=== PATIENT | female | born 1950 | race Caucasian/White ===

== ENCOUNTER 2016-10-04 12:34 | Emergency (ER) | payer MEDICARE, OTHER ==
--- NOTE | 2016-10-04 14:05 | XRAY ---
Indication: Pain following fall. Comparison: None 3 views of the right shoulder demonstrates mild AC degenerative arthropathy and a few tiny humeral head subcortical cysts. No other bony, articular, or soft tissue abnormalities.
--- NOTE | 2016-10-04 14:05 | XRAY ---
Indication: Pain following fall. Comparison: None 3 views of the right knee demonstrates minimal medial joint space narrowing, tiny patellar spurring, and posterior fabella. No other bony, articular, or soft tissue abnormalities.
--- NOTE | 2016-10-04 14:08 | XRAY ---
Indication: Pain following fall. Comparison: None 5 views of the cervical spine demonstrates normal alignment with moderate C6-C7 degenerative disc disease as evidenced by disc space narrowing and opposing endplate sclerosis/spurring with subsequent foraminal narrowing, right greater than left. Lesser C5-C6 degenerative disc disease. No fracture, subluxation, or prevertebral soft tissue swelling. Impression: C5-C7 degenerative disc disease as detailed. Nothing acute.
--- NOTE | 2016-10-04 14:18 | XRAY ---
Indication: Pain following fall. Comparison: May 28, 2014. 3 views of the left knee unchanged again demonstrating total knee arthroplasty with intact prosthesis and articulation. New/acute findings.
--- NOTE | 2016-10-04 14:30 | ERPHSYRPT ---
- History of Present Illness Time Seen by Provider: 10/04/16 12:47 Source: patient, family Exam Limitations: no limitations Patient Subjective Stated Complaint: pt states she was at [facility] in [place], [place] and slipped and fell. pt states her knees hit first and then arms. pt c/o pain to left upper arm and neck. Triage Nursing Assessment: pt pink, warm, dry. bruising noted to right knee. pt ambulated into ER without difficulty. pt alert and oriented x3. pt did not loose consciousness. Occurred: just prior to arrival Reason for Fall: lost balance Injuries/Pain Location: neck, upper extremity, lower extremity Loss of Consciousness: no loss of consciousness Quality: aching Severity of Pain-Max: moderate Severity of Pain-Current: moderate Modifying Factors: Improves With: movement Associated Symptoms (Fall): neck pain Allergies/Adverse Reactions: adhesive tape Allergy (Intermediate, Verified 10/04/16 12:56) Rash Penicillins Allergy (Intermediate, Verified 10/04/16 12:56) Itching Sulfa (Sulfonamide Antibiotics) Allergy (Intermediate, Verified 10/04/16 12:56) Itching tramadol HCl [From Ultram] Allergy (Intermediate, Verified 10/04/16 12:56) Itching codeine Adverse Reaction (Severe, Verified 10/04/16 12:56) mood swings Home Medications: Alprazolam 0.25 mg [xanAX 0.25 MG] 12.5 tab PO TID 09/16/12 [History] PANTOPRAZOLE 40 mg Tablet [Protonix 40MG Tablet] 1 tab PO BID 11/04/14 [ History] Docusate Sodium [Stool Softener] 100 mg PO DAILY PRN PRN 12/13/14 [History] Losartan/Hydrochlorothiazide [Losartan-Hctz 100-12.5 mg Tab] 1 each PO DAILY [History] Hx Tetanus, Diphtheria Vaccination/Date Given: Yes (up to date) Hx Influenza Vaccination/Date Given: No Hx Pneumococcal Vaccination/Date Given: No Immunizations Up to Date: Yes - Review of Systems Constitutional: No Symptoms Eyes: No Symptoms Ears, Nose, & Throat: No Symptoms Respiratory: No Symptoms Cardiac: No Symptoms Abdominal/Gastrointestinal: No Symptoms Musculoskeletal: Neck Pain, Fall, Joint Pain Neurological: No Symptoms Psychological: No Symptoms Endocrine: No Symptoms Hematologic/Lymphatic: No Symptoms Immunological/Allergic: No Symptoms - Past Medical History Pertinent Past Medical History: Yes Neurological History: Migraines ENT History: Macular Degeneration Cardiac History: High Cholesterol, Hypertension, Other Respiratory History: Asthma Endocrine Medical History: No Pertinent History Musculoskeletal History: Arthritis, Fractures GI Medical History: GERD History: No Pertinent History Psycho-Social History: Anxiety Female Reproductive Disorders: Abnormal Uterine Bleeding Other Medical History: leaking heart valves (2), benign spots on both sides of lungs. left foot fracture 2014 - Past Surgical History Past Surgical History: Yes Neuro Surgical History: No Pertinent History Cardiac: Cardiac Catheterization Respiratory: Other Gastrointestinal: Cholecystectomy Genitourinary: No Pertinent History Musculoskeletal: Joint Replacement Female Surgical History: Hysterectomy, Tubal Ligation Other Surgical History: left knee replaced. lung biopsy right and left, 12 years ago. varicose vein stripping - Social History Smoking Status: Never smoker Exposure to second hand smoke: No Drug Use: none Patient Lives Alone: No - Nursing Vital Signs Nursing Vital Signs: Initial Vital Signs Temperature 98.1 F 10/04/16 12:47 Pulse Rate 75 10/04/16 12:47 Respiratory Rate 18 10/04/16 12:47 Blood Pressure 159/96 10/04/16 12:47 O2 Sat by Pulse Oximetry 98 10/04/16 12:47 Pain Scale Pain Intensity 3 - [place] Coma Score Best Eye Response ([place]): (4) open spontaneously Best Verbal Response ([place]): (5) oriented Best Motor Response ([place]): (6) obeys commands Cathleen Total: 15 - Physical Exam General Appearance: mild distress Head Injury: no evidence of injury Eye Exam: PERRL/EOMI, eyes nml inspection ENT Exam: airway nml Neck Exam: supple, trachea midline, full range of motion, normal alignment, normal inspection, limited range of motion, tenderness (paracervical on the right) Respiratory/Chest Exam: normal breath sounds, No chest tenderness Cardiovascular Exam: normal heart sounds, regular rate/rhythm, normal peripheral pulses Gastrointestinal Exam: soft, normal bowel sounds, No tenderness Back Exam: normal inspection, normal range of motion, No CVA tenderness Extremity Exam: normal range of motion, capillary refill <3 sec, pelvis stable, bony point tenderness, evidence of injury (contusions right knee), pain with movement Neurologic Exam: alert, oriented x 3, cooperative Skin Exam: warm, dry, ecchymosis (right knee) SpO2 Interpretation: normal SpO2: 98 Oxygen Delivery: Room Air - Course Nursing assessment & vital signs reviewed: Yes - Radiology Exams C-Spine X-ray Interpretation: Interpreted by me, Reviewed by me, Teleradiologist Report , Other (C5-7DDD. No acute.) Knee X-ray Interpretation: Interpreted by me, Reviewed by me, Teleradiologist Report , Other (Left knee post total arthroplasty with intact prosthesis/articulation. No acute. Right knee patella spurring, posterior fabella and joint space narrowing. No acute. ) Shoulder X-ray Interpretation: Interpreted by me, Reviewed by me, Teleradiologist Report (right shoulder with AC degenrative arthropathy and few tiny cysts. No other abn acutely.) Ordered Tests: Active Orders 24 hr Category Date Time Status CERVICAL SPINE MINIMUM 4 VIEWS Stat Exams 10/04/16 Completed KNEE (3 VIEWS) Stat Exams 10/04/16 Completed KNEE (3 VIEWS) Stat Exams 10/04/16 Completed SHOULDER Stat Exams 10/04/16 Completed - Progress Progress: improved Discussed with : Other (PCP 1 week) Will see patient in: office Counseled pt/family regarding: diagnosis, need for follow-up, rad results - Departure Time of Disposition: 14:25 Departure Disposition: Home Clinical Impression: Knee contusion Qualifiers: Encounter type: initial encounter Laterality: right Qualified Code(s): S80.01XA - Contusion of right knee, initial encounter Shoulder contusion Qualifiers: Encounter type: initial encounter Laterality: right Qualified Code(s): S40.011A - Contusion of right shoulder, initial encounter Condition: Stable Critical Care Time: No Referrals: BEATA RODNEY [Primary Care Provider] - Instructions: Contusion
[2016-10-04] MEDS ORDERED: TYLENOL EXTRA STRENGTH 500 MG PO ONE (14:35)
[2016-10-04] MEDS ORDERED: TYLENOL EXTRA STRENGTH 500 MG ONE (14:37)
[2016-10-04 14:43] VITALS: BP 158/94; PULSE 72; O2SAT 100
== END 2016-10-04 14:42 | disposition home or self-care (01) ==
LOC: ED 12:34
DX: S80.01XA Contusion of right knee, initial encounter (principal); S40.011A Contusion of right shoulder, initial encounter; W01.0XXA Fall on same level from slipping, tripping and stumbling without subsequent striking against object, initial encounter; Y92.511 Restaurant or cafe as the place of occurrence of the external cause; M25.562 Pain in left knee; M25.561 Pain in right knee; M79.622 Pain in left upper arm; M54.2 Cervicalgia
CPT/HCPCS: 72050; 73030; 73562; 99282; A9270-GY

== ENCOUNTER 2018-08-25 14:50 | Emergency (ER) | payer MEDICARE, OTHER ==
[2018-08-25 15:04] VITALS: O2SAT 97
--- NOTE | 2018-08-25 15:36 | XRAY ---
Indication: Pain following fall. Comparison: None 3 views of the right knee demonstrates tiny lateral tibial spine ossification with small effusion concerning for anterior cruciate ligament tear better evaluated with MRI. Elsewhere osteopenia, mild tricompartmental degenerative changes, and diffuse venous varicosities.
--- NOTE | 2018-08-25 15:38 | XRAY ---
Indication: Lateral pain following fall. Comparison: None 3 nonweightbearing views of the left foot demonstrates nondisplaced 5th metatarsal base fracture. Elsewhere mild osteopenia and small plantar heel spur.
--- NOTE | 2018-08-25 15:50 | ERPHSYRPT ---
- History of Present Illness Time Seen by Provider: 08/25/18 15:15 Source: patient Exam Limitations: clinical condition Patient Subjective Stated Complaint: Left foot injury Triage Nursing Assessment: Patient ambulated with a limp back to ED and transferred self to bed. Patient A+ O x 3. Patient complains of left foot injury after stepping off of a curb. Swelling and bruising noted to outer left foot. Pain is constant aching 6/10. Pulse present. Physician History: PATIENT STEPPED OFF EDGE OF CURB SUSTAINING INJURY TO LEFT FOOT. PATIENT COMPLAINS OF PAIN WITH SWELLING OVER OUTER ASPECT OF FOOT . HAS SEVERE PAIN UPON WEIGHT BEARING. DENIES DEFORMITY OR BRUSING. Method of Injury: fell, twisted Occurred: just prior to arrival Quality: constant Severity of Pain-Max: moderate Severity of Pain-Current: moderate Lower Extremities Pain: foot: left Modifying Factors: Improves With: movement Associated Symptoms: unable to bear weight Allergies/Adverse Reactions: adhesive tape Allergy (Intermediate, Verified 08/25/18 14:55) Rash Penicillins Allergy (Intermediate, Verified 08/25/18 14:55) Itching Sulfa (Sulfonamide Antibiotics) Allergy (Intermediate, Verified 08/25/18 14:55) Itching tramadol HCl [From Ultram] Allergy (Intermediate, Verified 08/25/18 14:55) Itching codeine Adverse Reaction (Severe, Verified 08/25/18 14:55) mood swings Home Medications: Alprazolam 0.25 mg [xanAX 0.25 MG] 0.25 tab PO HS 09/16/12 [History] Docusate Sodium [Stool Softener] 100 mg PO DAILY PRN PRN 12/13/14 [History] Hx Tetanus, Diphtheria Vaccination/Date Given: Yes (up to date) Hx Influenza Vaccination/Date Given: Yes Hx Pneumococcal Vaccination/Date Given: Yes Immunizations Up to Date: Yes - Review of Systems Constitutional: No Symptoms Musculoskeletal: Injury, Joint Pain, Joint Swelling Neurological: No Symptoms Psychological: No Symptoms Endocrine: No Symptoms - Past Medical History Pertinent Past Medical History: Yes Neurological History: Migraines ENT History: Macular Degeneration Cardiac History: High Cholesterol, Hypertension, Other Respiratory History: Asthma Endocrine Medical History: No Pertinent History Musculoskeletal History: Arthritis, Fractures GI Medical History: GERD History: No Pertinent History Psycho-Social History: Anxiety Female Reproductive Disorders: Abnormal Uterine Bleeding Other Medical History: leaking heart valves (2), benign spots on both sides of lungs. left foot fracture 2014 - Past Surgical History Past Surgical History: Yes Neuro Surgical History: No Pertinent History Cardiac: Cardiac Catheterization Respiratory: Other Gastrointestinal: Cholecystectomy Genitourinary: No Pertinent History Musculoskeletal: Joint Replacement Female Surgical History: Hysterectomy, Tubal Ligation Other Surgical History: left knee replaced. lung biopsy right and left, 12 years ago. varicose vein stripping - Social History Smoking Status: Never smoker Exposure to second hand smoke: No Drug Use: none Patient Lives Alone: No - Female History Hx Last Menstrual Period: Hysterectomy 1976 Hx Now: No - Nursing Vital Signs Nursing Vital Signs: Initial Vital Signs Temperature 98.0 F 08/25/18 14:59 Pulse Rate 70 08/25/18 14:59 Respiratory Rate 18 08/25/18 14:59 Blood Pressure 153/79 08/25/18 14:59 O2 Sat by Pulse Oximetry 97 08/25/18 14:59 Pain Scale Pain Intensity 6 - Physical Exam General Appearance: no apparent distress Foot Exam: left foot: limited range of motion, soft tissue tenderness, swelling (OVER THE LEFT PROXIMAL 5TH METATARSAL NO CREPITUS OR ECCHYMOSIS, PEDIS PULSE 2+ ) DTR - Lower Extremities Exam: knee (R): 2+, knee (L): 2+, ankle (R): 2+, ankle ( L): 2+ Neuro/Tendon Exam: normal sensation Mental Status Exam: alert, oriented x 3 Skin Exam: normal color SpO2: 97 - Radiology Exams Right Knee X-ray Interpretation: Reviewed by me, No Fracture (TINY LATERAL TIBIAL SPINE OSSIFICATION WITH SMALL EFFUSION CONCERNING FOR ANTERIOR CRUCIATE LIGAMENT TEAR) Ordered Tests: Active Orders 24 hr Category Date Time Status Crutches STAT Care 08/25/18 15:59 Active Splint STAT Care 08/25/18 15:57 Active FOOT (MINIMUM 3 VIEWS) Stat Exams 08/25/18 15:08 Completed KNEE (3 VIEWS) Stat Exams 08/25/18 15:11 Completed Medication Summary Discontinued Medications Generic Name Dose Route Start Last Admin Trade Name Freq PRN Reason Stop Dose Admin Hydrocodone Bitart/Acetaminophen 1 tab 08/25/18 16:08 08/25/18 16:20 [place] 5/325 Mg PO 08/25/18 16:09 1 tab STAT ONE Administration Hydrocodone Bitart/Acetaminophen Confirm 08/25/18 16:10 [place] 5/325 Mg Administered 08/25/18 16:11 Dose 1 tab .ROUTE .STK-MED ONE Hydrocodone Bitart/Acetaminophen Confirm 08/25/18 16:20 [place] 5/325 Mg Administered 08/25/18 16:21 Dose 1 tab .ROUTE .STK-MED ONE Diphtheria/Tetanus/Acell Pertussis 0.5 ml 08/25/18 16:07 08/25/18 16:21 Adacel Vial IM 08/25/18 16:08 0.5 ml .ONCE ONE Administration Diphtheria/Tetanus/Acell Pertussis Confirm 08/25/18 16:11 Adacel Vial Administered 08/25/18 16:12 Dose 0.5 ml IM .STK-MED ONE Diphtheria/Tetanus/Acell Pertussis Confirm 08/25/18 16:21 Adacel Vial Administered 08/25/18 16:22 Dose 0.5 ml IM .STK-MED ONE - Progress Progress: pain not gone completely Progress Note: 08/25/18 16:07 LEFT SHORT LEG ORTHOGLASS SPLINT, CRUTCHES, ADACEL 0.5ML IM Counseled pt/family regarding: diagnosis, need for follow-up, rad results - Departure Departure Disposition: Home Clinical Impression: LEFT 5TH METATARSAL FRACTURE FRACTURE Condition: Stable Critical Care Time: No Referrals: MAY PEREZ DIRECTOR OF NEUROLOGY [Primary Care Provider] - Additional Instructions: AMBULATE USING CRUTCHES NONWEIGHT BEARING LEFT FOOT UNTIL EVALUATED BY ORTHOPEDIC SURGEON. ELEVATE FOOT AND APPLY ICE OVER FOOT SWELLING EVERY 4 HOURS , 30 MINUTES FOR 48 HOURS. [place] 5/325 EVERY 6 HOURS FOR PAIN NEEDED. TAKE COPY OF XRAY DISC TO APPOINTMENT. Prescriptions: Hydrocodone/APAP 5-325 Tab^^^ [[place] 5-325 Tablet^^^] 1 tab PO Q6HPRN PRN #15 tablet MDD 4 PRN Reason: Pain
[2018-08-25 16:07] VITALS: BP 151/78; PULSE 67
[2018-08-25] MEDS ORDERED: Adacel Vial IM ONE ×3 (16:07→16:21)
[2018-08-25] MEDS ORDERED: NORCO 5/325 MG PO ONE (16:08)
[2018-08-25] MEDS ORDERED: NORCO 5/325 MG ONE ×2 (16:10→16:20)
== END 2018-08-25 16:51 | disposition home or self-care (01) ==
LOC: ED 14:50
DX: S92.355A Nondisplaced fracture of fifth metatarsal bone, left foot, initial encounter for closed fracture (principal); X50.1XXA Overexertion from prolonged static or awkward postures, initial encounter; Y93.89 Activity, other specified; Y92.89 Other specified places as the place of occurrence of the external cause; M79.89 Other specified soft tissue disorders; I10 Essential (primary) hypertension; J45.909 Unspecified asthma, uncomplicated
CPT/HCPCS: 29515; 73562; 73630; 90471; 90715; 99284; A9270-GY

== ENCOUNTER 2019-01-01 06:23 | Day surgery (SDC) | payer MEDICARE, OTHER ==
[2019-01-01] MEDS ORDERED: Lactated Ringers 1,000 ML IV SCH (07:30)
[2019-01-01] MEDS ORDERED: DIPRIVAN 200 MG/20 ML IV ONE ×2 (07:43→07:59)
[2019-01-01] MEDS ORDERED: Ketamine HCl 50 MG/ML ONE (07:43)
[2019-01-01] MEDS ORDERED: Mylicon DROPS ONE (08:13)
[2019-01-01 08:34] VITALS: O2SAT 97
[2019-01-01 08:58] VITALS: BP 153/86; PULSE 80
--- NOTE | 2019-01-01 11:59 | OP ---
SURGERY DATE/TIME: 01/01/2019 0745 PREOPERATIVE DIAGNOSIS: History of colon polyps and change in bowel habits with alternating constipation and diarrhea. POSTOPERATIVE DIAGNOSIS: Normal exam. PROCEDURE: Colonoscopy. SURGEON: Dr. Garcia. ANESTHESIA: MAC. Medications given by anesthesia department. HISTORY: The patient is a 68 year-old white female presenting now for surveillance examination due to history of previous polyps but also with a change in her bowel habits. The patient was felt the need to have endoscopic evaluation. She was appraised of the risks of the procedure including the risk of perforation, phlebitis, untoward reaction to medication, bleeding and missed lesions. The patient verbalized her understanding and desired to have the procedure performed. DESCRIPTION OF PROCEDURE: The patient was given the medications by the anesthesia department. She had continuous pulse oximetry, ECG monitoring, intermittent blood pressure monitoring and tidal CO2 monitoring during the examination. She was placed in the left lateral decubitus position. A digital rectal examination was performed and revealed somewhat tight anal sphincter tone. No masses were felt. The flexible Olympus pediatric colonoscope was used to intubate the rectum. A view of the colon was developed sequentially to the cecum. Upon insertion and withdrawal, including a retroflex view in the rectum, no mucosal lesions were encountered. The scope was removed from the patient who tolerated the procedure well and was sent back to OP recovery in good condition. The prep was noted to be fair to good.
== END 2019-01-01 09:05 | disposition home or self-care (01) ==
LOC: SDC 06:23
PROVIDERS: ATTEND Family Medicine
DX: Z86.010 Personal history of colon polyps (principal); R19.4 Change in bowel habit; K59.00 Constipation, unspecified; R19.7 Diarrhea, unspecified
CPT/HCPCS: J2704; A9270-GY

== ENCOUNTER 2019-08-17 13:19 | Emergency (ER) | payer MEDICARE, OTHER ==
[2019-08-17] MEDS ORDERED: BABY ASPIRIN 81 MG CHEW PO ONE (13:58)
[2019-08-17] MEDS ORDERED: BABY ASPIRIN 81 MG CHEW ONE (14:05)
--- NOTE | 2019-08-17 14:07 | ERPHSYRPT ---
- History of Present Illness Time Seen by Provider: 08/17/19 13:35 Historian: patient, family Exam Limitations: no limitations Patient Subjective Stated Complaint: pt here for chest pain last night 2 episodes, no pain at present time.pt denies any other cos at present time, Triage Nursing Assessment: pt alert, walked in, resp easy, skin w/d/p. chest clear, adb soft, no edema, moves ext well Physician History: This is a 69-year-old female who has a remote history of hypertension but has not been taking any blood pressure medicine in over 2 years and presents with 2 episodes of chest pain that began yesterday. She describes this as sharp substernal central and nonradiating. She arrives with no chest pain. Patient is obese. She has not taken any aspirin or nitroglycerin prior to her arrival. Patient contacted her primary care provider's office and they told her to come to the emergency room for evaluation. Patient is under a lot of stress according to her and her spouse. She has no shortness of breath and no cough. She has had no fever, no abdominal pain and no nausea vomiting or diarrhea. She does have a history of chronic angina and was prescribed nitroglycerin but has not taken anything for this. Her pedigree researcher is Dr. Avina Timing/Duration: yesterday Activities at Onset: sleep Quality: sharpness Location: substernal, central Chest Pain Radiation: no radiation Severity of Pain-Max: mild Severity of Pain-Current: none Associated Symptoms: denies symptoms Prior Chest Pain/Cardiac Workup: cardiac cath Nitro Today/Relief: no nitro taken today Aspirin Treatment Today: no aspirin today Allergies/Adverse Reactions: adhesive tape Allergy (Intermediate, Verified 08/17/19 13:30) Rash Penicillins Allergy (Intermediate, Verified 08/17/19 13:30) Itching Sulfa (Sulfonamide Antibiotics) Allergy (Intermediate, Verified 08/17/19 13:30) Itching tramadol HCl [From Ultra] Allergy (Intermediate, Verified 08/17/19 13:30) Itching codeine Adverse Reaction (Severe, Verified 08/17/19 13:30) mood swings Home Medications: Alprazolam 0.25 mg [xanAX 0.25 MG] 0.25 tab PO HS 09/16/12 [History] Docusate Sodium [Stool Softener] 100 mg PO DAILY PRN PRN 12/13/14 [History] Acetaminophen [Tylenol] 325 mg PO DAILY PRN PRN 12/29/18 [History] Calcium Carbonate/Vitamin D3 [Calcium 1,000 + D3 Caplet] 1 each PO DAILY 12/29/18 [History] Calcium No.1/D3/B6/FA/B12/Aloe [Vitamin D3-Aloe 1,000 Unit Tab] 1 each PO DAILY 12/29/18 [History] Fluticasone Propionate [Flonase Allergy Relief] 15.8 ml NS DAILY 12/29/18 [History] Naproxen Sodium 220 mg [Aleve 220 MG] 220 mg PO DAILY PRN PRN 12/29/18 [History] Ubidecarenone/Vit E Acetate [Co Q-10 100 mg Softgel] 1 each PO DAILY 12/29/18 [History] Hx Tetanus, Diphtheria Vaccination/Date Given: Yes (up to date) Hx Influenza Vaccination/Date Given: No Hx Pneumococcal Vaccination/Date Given: No Immunizations Up to Date: Yes Travel Risk - International Travel Have you traveled outside of the country in past 3 weeks: No - Coronavirus Screening Are you exhibiting any of the following symptoms?: No Close contact with a COVID-19 positive Pt in past 14-21 Days: No - Review of Systems Constitutional: No Symptoms Eyes: No Symptoms Ears, Nose, & Throat: No Symptoms Respiratory: No Symptoms Cardiac: Chest Pain Abdominal/Gastrointestinal: No Symptoms Genitourinary Symptoms: No Symptoms Musculoskeletal: No Symptoms Skin: No Symptoms Neurological: No Symptoms Psychological: No Symptoms Endocrine: No Symptoms Hematologic/Lymphatic: No Symptoms Immunological/Allergic: No Symptoms All Other Systems: Reviewed and Negative - Past Medical History Pertinent Past Medical History: Yes Neurological History: Migraines ENT History: Macular Degeneration Cardiac History: High Cholesterol, Hypertension, Other Respiratory History: Asthma Endocrine Medical History: No Pertinent History Musculoskeletal History: Arthritis, Fractures GI Medical History: GERD History: No Pertinent History Psycho-Social History: Anxiety Female Reproductive Disorders: Abnormal Uterine Bleeding Other Medical History: leaking heart valves (2), benign spots on both sides of lungs. left foot fracture 2014 - Past Surgical History Past Surgical History: Yes Neuro Surgical History: No Pertinent History Cardiac: Cardiac Catheterization Respiratory: Other Gastrointestinal: Cholecystectomy Genitourinary: No Pertinent History Musculoskeletal: Joint Replacement Female Surgical History: Hysterectomy, Tubal Ligation Other Surgical History: left knee replaced, meniscus surgery R knee. lung biopsy right and left, 12 years ago, mediastinoscopy for bx. (-). varicose vein stripping - Social History Smoking Status: Never smoker Exposure to second hand smoke: Yes (in past) Drug Use: none Patient Lives Alone: No - Female History Hx Last Menstrual Period: post Hx Now: No - Nursing Vital Signs Nursing Vital Signs: Initial Vital Signs Temperature 98.4 F 08/17/19 13:20 Pulse Rate 98 H 08/17/19 13:20 Respiratory Rate 16 08/17/19 13:20 Blood Pressure 165/113 08/17/19 13:20 O2 Sat by Pulse Oximetry 96 08/17/19 13:20 Pain Scale Pain Intensity 0 - Physical Exam General Appearance: no apparent distress, alert, anxiety, obese Eye Exam: PERRL/EOMI, eyes nml inspection Ears, Nose, Throat Exam: normal ENT inspection, moist mucous membranes Neck Exam: normal inspection, non-tender, supple, full range of motion Respiratory Exam: normal breath sounds, lungs clear, airway intact, No chest tenderness, No respiratory distress Cardiovascular Exam: regular rate/rhythm, normal heart sounds, normal peripheral pulses Gastrointestinal/Abdomen Exam: soft, normal bowel sounds, No tenderness, No guarding Pelvic Exam: not done Rectal Exam: not done Back Exam: normal inspection, normal range of motion, No CVA tenderness, No vertebral tenderness Extremity Exam: normal inspection, normal range of motion, pelvis stable Neurologic Exam: alert, oriented x 3, cooperative, 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 This delay appears to be given the impression of ST elevation but it is not true ST elevation. There is no evidence of acute ischemic changes on thi) Ordered Tests: Active Orders 24 hr Category Date Time Status Assistant Account Executive STAT Care 08/17/19 13:32 Active EKG-ER Only STAT Care 08/17/19 13:32 Active IV Insertion STAT Care 08/17/19 13:32 Active Pulse Oximetry (ED) STAT Care 08/17/19 13:32 Active CHEST 1 VIEW (PORTABLE) Stat Exams 08/17/19 13:59 Completed CBC W DIFF Stat Lab 08/17/19 14:10 Completed CMP Stat Lab 08/17/19 14:10 Completed D-DIMER QUANTITATIVE Stat Lab 08/17/19 14:10 Completed NT PRO BNP Stat Lab 08/17/19 14:10 Completed PROTIME WITH INR Stat Lab 08/17/19 14:10 Completed TROPONIN Q3H Lab 08/17/19 14:10 Completed TROPONIN Q3H Lab 08/17/19 17:00 Ordered TROPONIN Q3H Lab 08/17/19 20:00 Ordered TROPONIN Q3H Lab 08/17/19 23:00 Ordered TROPONIN Q3H Lab 08/18/19 02:00 Ordered Medication Summary Discontinued Medications Generic Name Dose Route Start Last Admin Trade Name Mikeq PRN Reason Stop Dose Admin Aspirin 324 mg 08/17/19 13:58 08/17/19 14:07 Baby Aspirin 81 Mg Chew PO 08/17/19 13:59 324 mg STAT ONE Administration Aspirin Confirm 08/17/19 14:05 Baby Aspirin 81 Mg Chew Administered 08/17/19 14:06 Dose 324 mg .ROUTE .STK-MED ONE Lab/Rad Data: Laboratory Result Diagrams 08/17/19 14:10 08/17/19 14:10 Laboratory Results 08/17/19 08/17/19 08/17/19 Range/Units 14:10 14:10 14:10 WBC (4.0-10.5) K/mm3 RBC (4.1-5.4) M/mm3 Hgb (12.0-16.0) gm/dl Hct (35-47) % MCV (78-100) fl MCH (26-32) pg MCHC (32-36) g/dl RDW (11.5-14.0) % Plt Count (150-450) K/mm3 MPV (7.5-11.0) fl Gran % (36.0-66.0) % Eos # (Auto) (0-0.5) Absolute Lymphs (auto) (1.0-4.6) Absolute Monos (auto) (0.0-1.3) Lymphocytes % (24.0-44.0) % Monocytes % (0.0-12.0) % Eosinophils % (0.00-5.0) % Basophils % (0.0-0.4) % Absolute Granulocytes (1.4-6.9) Basophils # (0-0.4) PT 12.1 (9.95-12.35) SECONDS INR 1.07 (0.8-3.0) D-Dimer 483 (215-500) ng/mL Sodium 140 (137-145) mmol/L Potassium 3.7 (3.5-5.1) mmol/L Chloride 106 (98-107) mmol/L Carbon Dioxide 28 (22-30) mmol/L Anion Gap 9.7 (5-15) MEQ/L BUN 17 (7-17) mg/dL Creatinine 0.98 (0.52-1.04) mg/dL Estimated GFR 60.0 ML/MIN Glucose 104 (74-106) mg/dL Calcium 9.1 (8.4-10.2) mg/dL Total Bilirubin 0.60 (0.2-1.3) mg/dL AST 15 (14-36) U/L ALT 10 (0-35) U/L Alkaline Phosphatase 88 (38-126) U/L Troponin I < 0.012 (0.000-0.034) ng/mL NT-Pro-B Natriuret Pep 161 (0-900) pg/mL Serum Total Protein 7.2 (6.3-8.2) g/dL Albumin 4.2 (3.5-5.0) g/dL 08/17/19 Range/Units 14:10 WBC 5.5 (4.0-10.5) K/mm3 RBC 5.02 (4.1-5.4) M/mm3 Hgb 15.0 (12.0-16.0) gm/dl Hct 44.6 (35-47) % MCV 88.8 (78-100) fl MCH 29.9 (26-32) pg MCHC 33.6 (32-36) g/dl RDW 12.9 (11.5-14.0) % Plt Count 288 (150-450) K/mm3 MPV 10.4 (7.5-11.0) fl Gran % 57.3 (36.0-66.0) % Eos # (Auto) 0.10 (0-0.5) Absolute Lymphs (auto) 1.83 (1.0-4.6) Absolute Monos (auto) 0.39 (0.0-1.3) Lymphocytes % 33.3 (24.0-44.0) % Monocytes % 7.1 (0.0-12.0) % Eosinophils % 1.8 (0.00-5.0) % Basophils % 0.5 (0.0-0.4) % Absolute Granulocytes 3.15 (1.4-6.9) Basophils # 0.03 (0-0.4) PT (9.95-12.35) SECONDS INR (0.8-3.0) D-Dimer (215-500) ng/mL Sodium (137-145) mmol/L Potassium (3.5-5.1) mmol/L Chloride (98-107) mmol/L Carbon Dioxide (22-30) mmol/L Anion Gap (5-15) MEQ/L BUN (7-17) mg/dL Creatinine (0.52-1.04) mg/dL Estimated GFR ML/MIN Glucose (74-106) mg/dL Calcium (8.4-10.2) mg/dL Total Bilirubin (0.2-1.3) mg/dL AST (14-36) U/L ALT (0-35) U/L Alkaline Phosphatase (38-126) U/L Troponin I (0.000-0.034) ng/mL NT-Pro-B Natriuret Pep (0-900) pg/mL Serum Total Protein (6.3-8.2) g/dL Albumin (3.5-5.0) g/dL - Progress Progress: improved Air Movement: good Progress Note: 08/17/19 14:34 Chest x-ray reveals no acute pulmonary process. 08/17/19 14:47 Medical decision making: This patient has no known history of coronary artery disease. She does have some valvular issues and had a history in the past of high blood pressure which she was seeing Dr. Avina for. She arrived with no chest pain today. She had 2 episodes yesterday. Her primary care provider's office told her to come to the emergency room for evaluation. Patient has not had any chest pain during her stay here. Her blood pressure, without any medical intervention, improved 256/92 at the time of her discharge. Patient's d-dimer, BNP and troponin levels are all within normal limits. We will discharge her to home with instructions to follow-up with Dr. Avina, her pedigree researcher. I also told her to keep a daily log of blood pressure at least twice a day and to present that to Dr. Avina for further management. Blood Culture(s) Obtained: No Antibiotics given: No Counseled pt/family regarding: lab results, diagnosis, need for follow-up, rad results - Departure Departure Disposition: Home Clinical Impression: Chest pain Condition: Stable Critical Care Time: No Referrals: MAY PEREZ NP [NON-STAFF PHY W/O PRIVILEGES] - Additional Instructions: Monitor your blood pressure and keep a log twice a day daily log of your blood pressure for the next 4 [address] Avina's office to arrange for follow-up appointment. Return to the emergency room if you have recurrent chest pain.
[2019-08-17 14:11] LABS: Absolute Neutrophil Ct (ANC) 3.15 (1.4-6.9); BASOPHIL % 0.5 % (0.0-0.4); Basophil (Absolute #) 0.03 (0-0.4); Eosinophil % 1.8 % (0.00-5.0); Hematocrit 44.6 % (35-47); Lymphocyte (Absolute #) 1.83 (1.0-4.6); Lymphocytes % 33.3 % (24.0-44.0); Mean Cell Volume 88.8 fl (78-100); Mean Corpuscular Hemoglobin 29.9 pg (26-32); Mean Corpuscular Hgb Concent. 33.6 g/dl (32-36); Mean Platelet Volume 10.4 fl (7.5-11.0); Monocyte (Absolute #) 0.39 (0.0-1.3); Monocytes % 7.1 % (0.0-12.0); Neutrophil % 57.3 % (36.0-66.0); Platelet Count 288 K/mm3 (150-450); Red Blood Count 5.02 M/mm3 (4.1-5.4); Red Cell Distribution Width 12.9 % (11.5-14.0); White Blood Count 5.5 K/mm3 (4.0-10.5)
[2019-08-17 14:12] VITALS: BP 175/97
[2019-08-17 14:18] LABS: INR 1.07 (0.8-3.0); PROTIME 12.1 SECONDS (9.95-12.35)
[2019-08-17 14:30] LABS: ALBUMIN 4.2 g/dL (3.5-5.0); ANION GAP 9.7 MEQ/L (5-15); BILIRUBIN,TOTAL 0.6 mg/dL (0.2-1.3); Calcium 9.1 mg/dL (8.4-10.2); Creatinine 1 0.98 mg/dL (0.52-1.04); Potassium 3.7 mmol/L (3.5-5.1); Total Protein 7.2 g/dL (6.3-8.2)
--- NOTE | 2019-08-17 14:30 | XRAY ---
Indication: Chest pain and cough. Comparison: February 18, 2016. Portable apical lordotic chest again demonstrates normal heart and lungs. Bony thorax intact again with mild osteopenia. No new/acute findings.
[2019-08-17 14:36] VITALS: O2SAT 98
[2019-08-17 14:42] VITALS: PULSE 70
== END 2019-08-17 15:03 | disposition home or self-care (01) ==
LOC: ED 13:19
DX: R07.9 Chest pain, unspecified (principal); I10 Essential (primary) hypertension; E66.9 Obesity, unspecified; Z79.899 Other long term (current) drug therapy
CPT/HCPCS: 36000; 36415; 71045; 80053; 83880; 84484; 85025; 85379; 85610; 93005; 93041; 94760; 99284; A9270-GY

== ENCOUNTER 2020-07-29 12:24 | Emergency (ER) | payer MEDICARE, OTHER ==
--- NOTE | 2020-07-29 13:12 | ERPHSYRPT ---
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 Patient states that she awoke this morning with a visual disturbance. Patient describes her experience as looking through a kaleidoscope. She had a slight headache rated 3 out of 10. Patient has a history of optical migraines. Patient symptoms this morning were similar. Patient checked her blood pressure and it was elevated more than normal. Patient states she has a history of hypertension. She was last on antihypertensives about 5 to 6 years ago. Patient has been off of blood pressure medications since. Patient was told that she no longer needed blood pressure medication. She otherwise feels well. No slurred speech. No numbness tingling or weakness. No facial droop. No arm weakness. Patient is ambulatory with a stable gait. Patient was brought to our ED by her sister. No associated chest pain or shortness of breath. No nausea vomiting or diaphoresis. No abdominal pain. No dizziness or lightheadedness. Patient voices no other concerns at this time. Timing/Duration: today Severity: mild Modifying Factors: Improves With: nothing Associated Symptoms: denies symptoms Allergies/Adverse Reactions: adhesive tape Allergy (Intermediate, Verified 07/29/20 12:41) Rash Penicillins Allergy (Intermediate, Verified 07/29/20 12:41) Itching Sulfa (Sulfonamide Antibiotics) Allergy (Intermediate, Verified 07/29/20 12:41) Itching tramadol HCl [From Ultram] Allergy (Intermediate, Verified 07/29/20 12:41) Itching codeine Adverse Reaction (Severe, Verified 07/29/20 12:41) mood swings Home Medications: ALPRAZolam 0.25 MG [xanAX 0.25 MG] 0.5 tab PO TID PRN 09/16/12 [History] Docusate Sodium [Stool Softener] 100 mg PO DAILY PRN PRN 12/13/14 [History] Calcium Carbonate/Vitamin D3 [Calcium 1,000 + D3 Caplet] 1 each PO DAILY 12/29/18 [History] Calcium No.1/D3/B6/FA/B12/Aloe [Vitamin D3-Aloe 1,000 Unit Tab] 1 each PO DAILY 12/29/18 [History] Fluticasone Propionate [Flonase Allergy Relief] 15.8 ml NS DAILY 12/29/18 [Hi story] Ubidecarenone/Vit E Acetate [Co Q-10 100 mg Softgel] 1 each PO DAILY 12/29/18 [History] PANTOPRAZOLE 40 mg Tablet [Protonix 40MG Tablet] 40 mg PO QAM 07/29/20 [History] Hx Tetanus, Diphtheria Vaccination/Date Given: Yes (up to date) Hx Influenza Vaccination/Date Given: No Hx Pneumococcal Vaccination/Date Given: No Travel Risk - International Travel Have you traveled outside of the country in past 3 weeks: No - Coronavirus Screening Are you exhibiting any of the following symptoms?: No Close contact with a COVID-19 positive Pt in past 14-21 Days: No - Vaccine Status Have you recieved a Covid-19 vaccination: No - Review of Systems Constitutional: No Symptoms, No Fever, No Chills Eyes: No Symptoms Ears, Nose, & Throat: No Symptoms Respiratory: No Symptoms, No Cough, No Dyspnea Cardiac: No Symptoms, No Chest Pain, No Edema, No Syncope Abdominal/Gastrointestinal: No Symptoms, No Abdominal Pain, No Nausea, No Vomiting, No Diarrhea Genitourinary Symptoms: No Symptoms, No Dysuria Musculoskeletal: No Symptoms, No Back Pain, No Neck Pain Skin: No Symptoms, No Rash Neurological: No Symptoms, No Dizziness, No Focal Weakness, No Sensory Changes Psychological: No Symptoms Endocrine: No Symptoms Hematologic/Lymphatic: No Symptoms Immunological/Allergic: No Symptoms All Other Systems: Reviewed and Negative - Past Medical History Pertinent Past Medical History: Yes Neurological History: Migraines ENT History: Macular Degeneration Cardiac History: High Cholesterol, Hypertension, Other Respiratory History: Asthma Endocrine Medical History: No Pertinent History Musculoskeletal History: Arthritis, Fractures GI Medical History: GERD History: No Pertinent History Psycho-Social History: Anxiety Female Reproductive Disorders: Abnormal Uterine Bleeding Other Medical History: leaking heart valves (2), benign spots on both sides of lungs. left foot fracture 2014 - Past Surgical History Past Surgical History: Yes Neuro Surgical History: No Pertinent History Cardiac: Cardiac Catheterization Respiratory: Other Gastrointestinal: Cholecystectomy Genitourinary: No Pertinent History Musculoskeletal: Joint Replacement Female Surgical History: Hysterectomy, Tubal Ligation Other Surgical History: left knee replaced, meniscus surgery R knee. lung biopsy right and left, 12 years ago, mediastinoscopy for bx. (-). varicose vein stripping - Social History Smoking Status: Never smoker Exposure to second hand smoke: No (in past) Drug Use: none Patient Lives Alone: No - Female History Hx Now: No - Nursing Vital Signs Nursing Vital Signs: Initial Vital Signs Temperature 97.7 F 07/29/20 12:32 Pulse Rate 63 07/29/20 12:32 Blood Pressure 191/95 07/29/20 12:32 O2 Sat by Pulse Oximetry 98 07/29/20 12:32 Pain Scale Pain Intensity 3 - Physical Exam General Appearance: no apparent distress, alert Eye Exam: PERRL/EOMI, eyes nml inspection Ears, Nose, Throat Exam: normal ENT inspection, TMs normal, pharynx normal, moist mucous membranes Neck Exam: normal inspection, non-tender, supple, full range of motion Respiratory Exam: normal breath sounds, lungs clear, airway intact, No respiratory distress Cardiovascular Exam: regular rate/rhythm, normal heart sounds, normal peripheral pulses, No murmur Gastrointestinal/Abdomen Exam: soft, normal bowel sounds, No tenderness, No mass Pelvic Exam: not done Back Exam: normal inspection, normal range of motion, No CVA tenderness, No vertebral tenderness Extremity Exam: normal inspection, normal range of motion, pelvis stable Neurologic Exam: alert, oriented x 3, cooperative, normal mood/affect, nml cerebellar function, nml station & gait, sensation nml, No motor deficits Skin Exam: normal color, warm, dry, No rash Lymphatic Exam: No adenopathy SpO2 Interpretation: normal SpO2: 97 O2 Delivery: Room Air - Course Nursing assessment & vital signs reviewed: Yes EKG Interpreted by Me: RATE (73), Sinus Rhythm, NORMAL AXIS, NORMAL INTERVALS - Radiology Exams Chest X-ray Interpretation: Teleradiologist Report (Normal heart and lungs with incidental right hemidiaphragm elevation. Bony thorax intact again with mild osteopenia. No new acute findings.) - CT Exams Head CT Interpretation: Tele-radiologist Report (Continued normal CT head without contrast exam. Normal appearing brain parenchyma ventricles and bony calvarium for patient's age. Visualized paranasal sinuses and mastoid air cells are clear.) Ordered Tests: Active Orders 24 hr Category Date Time Status Air Operations Manager STAT Care 07/29/20 12:52 Active EKG-ER Only STAT Care 07/29/20 12:50 Active IV Insertion STAT Care 07/29/20 12:50 Active Pulse Oximetry (ED) STAT Care 07/29/20 12:50 Active CHEST 1 VIEW (PORTABLE) Stat Exams 07/29/20 12:52 Completed HEAD WITHOUT CONTRAST [CT] Stat Exams 07/29/20 12:55 Completed CBC W DIFF Stat Lab 07/29/20 12:05 Completed CMP Stat Lab 07/29/20 12:05 Completed MAGNESIUM Stat Lab 07/29/20 12:05 Completed NT PRO BNP Stat Lab 07/29/20 12:05 Completed TROPONIN Q3H Lab 07/29/20 12:05 Completed TROPONIN Q3H Lab 07/29/20 15:24 Completed TROPONIN Q3H Lab 07/29/20 19:00 Ordered TROPONIN Q3H Lab 07/29/20 22:00 Ordered TROPONIN Q3H Lab 07/30/20 01:00 Ordered UA W/RFX UR CULTURE Stat Lab 07/29/20 12:57 Completed Urine Triage Profile Stat Lab 07/29/20 12:57 Completed Medication Summary Generic Name Dose Route Start Last Admin Trade Name Freq PRN Reason Stop Dose Admin Carvedilol 6.25 mg 07/30/20 10:00 07/29/20 15:19 Coreg 6.25 Mg PO 08/29/20 09:59 6.25 mg DAILY DANIEL Administration Discontinued Medications Generic Name Dose Route Start Last Admin Trade Name Freq PRN Reason Stop Dose Admin Acetaminophen Confirm 07/29/20 14:50 Tylenol Extra Strength 500 Mg Administered 07/29/20 14:51 Dose 1,000 mg .ROUTE .STK-MED ONE Acetaminophen 1,000 mg 07/29/20 14:54 07/29/20 14:55 Tylenol Extra Strength 500 Mg PO 07/29/20 14:55 1,000 mg STAT STA Administration Lab/Rad Data: Laboratory Result Diagrams 07/29/20 12:05 07/29/20 12:05 Laboratory Results 07/29/20 07/29/20 07/29/20 Range/Units 15:24 12:57 12:57 WBC (4.0-10.5) K/mm3 RBC (4.1-5.4) M/mm3 Hgb (12.0-16.0) gm/dl Hct (35-47) % MCV (78-100) fl MCH (26-32) pg MCHC (32-36) g/dl RDW (11.5-14.0) % Plt Count (150-450) K/mm3 MPV (7.5-11.0) fl Gran % (36.0-66.0) % Eos # (Auto) (0-0.5) Absolute Lymphs (auto) (1.0-4.6) Absolute Monos (auto) (0.0-1.3) Lymphocytes % (24.0-44.0) % Monocytes % (0.0-12.0) % Eosinophils % (0.00-5.0) % Basophils % (0.0-0.4) % Absolute Granulocytes (1.4-6.9) Basophils # (0-0.4) Sodium (137-145) mmol/L Potassium (3.5-5.1) mmol/L Chloride (98-107) mmol/L Carbon Dioxide (22-30) mmol/L Anion Gap (5-15) MEQ/L BUN (7-17) mg/dL Creatinine (0.52-1.04) mg/dL Estimated GFR ML/MIN Glucose (74-106) mg/dL Calcium (8.4-10.2) mg/dL Magnesium (1.6-2.3) mg/dL Total Bilirubin (0.2-1.3) mg/dL AST (14-36) U/L ALT (0-35) U/L Alkaline Phosphatase (38-126) U/L Troponin I < 0.012 (0.000-0.034) ng/mL NT-Pro-B Natriuret Pep (0-900) pg/mL Serum Total Protein (6.3-8.2) g/dL Albumin (3.5-5.0) g/dL Urine Color COLORLESS (YELLOW) Urine Appearance CLEAR (CLEAR) Urine pH 7.0 (5-6) Ur Specific [place] 1.002 (1.005-1.025) Urine Protein NEGATIVE (Negative) Urine Ketones NEGATIVE (NEGATIVE) Urine Blood NEGATIVE (0-5) Vikram/ul Urine Nitrite NEGATIVE (NEGATIVE) Urine Bilirubin NEGATIVE (NEGATIVE) Urine Urobilinogen NEGATIVE (0-1) mg/dL Ur Leukocyte Esterase NEGATIVE (NEGATIVE) Urine WBC (Auto) NONE (0-5) /HPF Urine RBC (Auto) NONE (0-2) /HPF U Epithel Cells (Auto) NONE (FEW) /HPF Urine Bacteria (Auto) NONE SEEN (NEGATIVE) /HPF Urine Culture Reflexed NO (NO) Urine Glucose NEGATIVE (NEGATIVE) mg/dL Urine Opiates Level NEGATIVE (NEGATIVE) Ur Methadone NEGATIVE (NEGATIVE) Urine Barbiturates NEGATIVE (NEGATIVE) Ur Phencyclidine (PCP) NEGATIVE (NEGATIVE) Urine Amphetamine NEGATIVE (NEGATIVE) U Benzodiazepine Level NEGATIVE (NEGATIVE) Urine Cocaine NEGATIVE (NEGATIVE) Urine Marijuana (THC) NEGATIVE (NEGATIVE) 07/29/20 07/29/20 07/29/20 Range/Units 12:05 12:05 12:05 WBC 4.4 (4.0-10.5) K/mm3 RBC 4.54 (4.1-5.4) M/mm3 Hgb 13.1 (12.0-16.0) gm/dl Hct 40.7 (35-47) % MCV 89.6 (78-100) fl MCH 28.9 (26-32) pg MCHC 32.2 (32-36) g/dl RDW 12.9 (11.5-14.0) % Plt Count 239 (150-450) K/mm3 MPV 10.4 (7.5-11.0) fl Gran % 52.8 (36.0-66.0) % Eos # (Auto) 0.13 (0-0.5) Absolute Lymphs (auto) 1.54 (1.0-4.6) Absolute Monos (auto) 0.39 (0.0-1.3) Lymphocytes % 34.8 (24.0-44.0) % Monocytes % 8.8 (0.0-12.0) % Eosinophils % 2.9 (0.00-5.0) % Basophils % 0.7 (0.0-0.4) % Absolute Granulocytes 2.33 (1.4-6.9) Basophils # 0.03 (0-0.4) Sodium 140 (137-145) mmol/L Potassium 4.0 (3.5-5.1) mmol/L Chloride 104 (98-107) mmol/L Carbon Dioxide 30 (22-30) mmol/L Anion Gap 10.0 (5-15) MEQ/L BUN 12 (7-17) mg/dL Creatinine 0.89 (0.52-1.04) mg/dL Estimated GFR > 60.0 ML/MIN Glucose 107 H (74-106) mg/dL Calcium 9.4 (8.4-10.2) mg/dL Magnesium 2.1 (1.6-2.3) mg/dL Total Bilirubin 0.30 (0.2-1.3) mg/dL AST 20 (14-36) U/L ALT 13 (0-35) U/L Alkaline Phosphatase 78 (38-126) U/L Troponin I < 0.012 (0.000-0.034) ng/mL NT-Pro-B Natriuret Pep 199 (0-900) pg/mL Serum Total Protein 6.6 (6.3-8.2) g/dL Albumin 3.9 (3.5-5.0) g/dL Urine Color (YELLOW) Urine Appearance (CLEAR) Urine pH (5-6) Ur Specific [place] (1.005-1.025) Urine Protein (Negative) Urine Ketones (NEGATIVE) Urine Blood (0-5) Vikram/ul Urine Nitrite (NEGATIVE) Urine Bilirubin (NEGATIVE) Urine Urobilinogen (0-1) mg/dL Ur Leukocyte Esterase (NEGATIVE) Urine WBC (Auto) (0-5) /HPF Urine RBC (Auto) (0-2) /HPF U Epithel Cells (Auto) (FEW) /HPF Urine Bacteria (Auto) (NEGATIVE) /HPF Urine Culture Reflexed (NO) Urine Glucose (NEGATIVE) mg/dL Urine Opiates Level (NEGATIVE) Ur Methadone (NEGATIVE) Urine Barbiturates (NEGATIVE) Ur Phencyclidine (PCP) (NEGATIVE) Urine Amphetamine (NEGATIVE) U Benzodiazepine Level (NEGATIVE) Urine Cocaine (NEGATIVE) Urine Marijuana (THC) (NEGATIVE) - Progress Progress: improved Progress Note: Patient reassessed. She is feeling well. Headache is minimal at this time. Patient given a gram of Tylenol for her headache. Case discussed with Dr. Garcia. He feels and I agree that patient may go home today provided her sec ond troponin is negative. Per Dr. Garcia we will start Coreg 6.25 mg p.o. twice daily. Patient will receive the first dose in our ED. A prescription for Coreg will be provided to patient. Patient will log her blood pressure twice a day at home. She will follow-up with Dr. Garcia/Jackie Sanchez this week. 07/29/20 15:15 07/29/20 16:[address] Garcia or Jackie Sanchez on Tuesday at 3:15 PM. Discussed with .: Veronica Will see patient in: office Counseled pt/family regarding: lab results, diagnosis, need for follow-up, rad results - Departure Departure Disposition: Home Clinical Impression: Hypertension, Migraine, Osteopenia Condition: Stable Critical Care Time: No Referrals: KENDELL SANCHEZ [Primary Care Provider] - Additional Instructions: Discharge/Care Plan BROOKS WALLACE was seen on 07/29/20 in the Emergency Room. The patient was counseled regarding Diagnosis,Lab results, Imaging studies, need for follow up and when to return to the Emergency Room. Prescriptions given: Discharge Note I have spoken with the patient and/or caregivers. I have explained the patient's condition, diagnosis and treatment plan based on the information available to me at this time. I have answered the patient's and/or caregiver's questions and addressed any concerns. The patient and/or caregivers have as good understanding of the patient's diagnosis, condition and treatment plan as can be expected at this point. The vital signs have been stable. The patient's condition is stable and appropriate for discharge from the emergency department. The patient will pursue further outpatient evaluation with the primary care physician or other designated or consulting physician as outlined in the discharge instructions. The patient and/or caregivers are agreeable to this plan of care and follow-up instructions have been explained in detail. The patient and/or caregivers have received these instruction. The patient/and or caregivers are aware that any significant change in condition or worsening of symptoms should prompt an immediate return to this or the closest emergency department or call 911. Prescriptions: Carvedilol 6.25 mg [Coreg 6.25 MG] 6.25 mg PO BID 7 Days #14 tablet
[2020-07-29 13:19] LABS: Appearance CLEAR (CLEAR); Bilirubin NEGATIVE (NEGATIVE); Blood NEGATIVE Ery/ul (0-5); Glucose NEGATIVE (NEGATIVE); Ketones NEGATIVE (NEGATIVE); Leukocyte Esterase NEGATIVE (NEGATIVE); Nitrite NEGATIVE (NEGATIVE); Protein,Urine Dip NEGATIVE (Negative); Specific Gravity 1.002 (1.005-1.025); Urobilinogen NEGATIVE mg/dL (0-1)
[2020-07-29 13:28] LABS: Absolute Neutrophil Ct (ANC) 2.33 (1.4-6.9); BASOPHIL % 0.7 % (0.0-0.4); Basophil (Absolute #) 0.03 (0-0.4); Eosinophil % 2.9 % (0.00-5.0); Eosinophil (Absolute #) 0.13 (0-0.5); Hematocrit 40.7 % (35-47); Hemoglobin 13.1 gm/dl (12.0-16.0); Lymphocyte (Absolute #) 1.54 (1.0-4.6); Lymphocytes % 34.8 % (24.0-44.0); Mean Cell Volume 89.6 fl (78-100); Mean Corpuscular Hemoglobin 28.9 pg (26-32); Mean Corpuscular Hgb Concent. 32.2 g/dl (32-36); Mean Platelet Volume 10.4 fl (7.5-11.0); Monocyte (Absolute #) 0.39 (0.0-1.3); Monocytes % 8.8 % (0.0-12.0); Neutrophil % 52.8 % (36.0-66.0); Platelet Count 239 K/mm3 (150-450); Red Blood Count 4.54 M/mm3 (4.1-5.4); Red Cell Distribution Width 12.9 % (11.5-14.0); White Blood Count 4.4 K/mm3 (4.0-10.5)
--- NOTE | 2020-07-29 13:30 | XRAY ---
Indication: High blood pressure. Pneumonia. Comparison: August 17, 2019. Portable chest again demonstrates normal heart and lungs with incidental right hemidiaphragm elevation. Bony thorax intact again with mild osteopenia. No new/acute findings.
[2020-07-29 13:34] LABS: ALBUMIN 3.9 g/dL (3.5-5.0); ALKALINE PHOSPHATASE 78 U/L (38-126); BLOOD UREA NITROGEN 12 mg/dL (7-17); CHLORIDE 104 mmol/L (98-107); Calcium 9.4 mg/dL (8.4-10.2); Carbon Dioxide 30 mmol/L (22-30); Creatinine 1 0.89 mg/dL (0.52-1.04); EST GLOMERULAR FILTRATION RATE > 60.0 ML/MIN; Glucose 107 mg/dL (74-106); MAGNESIUM 2.1 mg/dL (1.6-2.3); NT PRO BNP 199 pg/mL (0-900); SGOT/AST 20 U/L (14-36); SGPT/ALT 13 U/L (0-35); SODIUM 140 mmol/L (137-145); Total Protein 6.6 g/dL (6.3-8.2)
[2020-07-29 13:35] LABS: Amphetamine,Urine NEGATIVE (NEGATIVE); Barbiturate,Urine NEGATIVE (NEGATIVE); Benzodiazepine,Urine NEGATIVE (NEGATIVE); Cocaine,Urine NEGATIVE (NEGATIVE); Methadone,Urine NEGATIVE (NEGATIVE); Opiate,Urine NEGATIVE (NEGATIVE); PCP,Urine NEGATIVE (NEGATIVE); THC,Urine NEGATIVE (NEGATIVE)
[2020-07-29 13:36] LABS: Bacteria NONE SEEN /HPF (NEGATIVE)
--- NOTE | 2020-07-29 13:40 | XRAY ---
Indication: Nausea. High blood pressure. Multiple contiguous axial images obtained through the head without contrast. Comparison: January 11, 2011. Normal appearing brain parenchyma, ventricles, and bony calvarium for patient's age. Visualized paranasal sinuses and mastoid air cells are clear. Impression: Continued normal CT head without contrast exam.
[2020-07-29 14:02] VITALS: PULSE 73
[2020-07-29 14:06] VITALS: O2SAT 97
[2020-07-29] MEDS ORDERED: TYLENOL EXTRA STRENGTH 500 MG ONE (14:50)
[2020-07-29] MEDS ORDERED: TYLENOL EXTRA STRENGTH 500 MG PO STA (14:54)
[2020-07-29 15:13] VITALS: BP 172/76
[2020-07-30] MEDS ORDERED: Coreg 6.25 MG PO SCH (10:00)
== END 2020-07-29 16:45 | disposition home or self-care (01) ==
LOC: ED 12:24
DX: I10 Essential (primary) hypertension (principal); G43.909 Migraine, unspecified, not intractable, without status migrainosus; M85.80 Other specified disorders of bone density and structure, unspecified site
CPT/HCPCS: 36000; 36415; 70450; 71045; 80053; 80307; 81001; 83735; 83880; 84484; 85025; 93005; 93041; 94760; 99284; A9270-GY

== ENCOUNTER 2021-08-09 10:32 | Observation (INO) | payer MEDICARE, OTHER ==
[2021-08-09] MEDS ORDERED: Pepcid 20 MG VIAL IV ONE ×2 (10:40→11:03)
[2021-08-09] MEDS ORDERED: BABY ASPIRIN 81 MG CHEW PO ONE (10:40)
[2021-08-09] MEDS ORDERED: Nitrostat 0.4 MG (ED) SL ONE ×2 (10:40→11:03)
[2021-08-09] MEDS ORDERED: Sodium Chloride 0.9% 1000 ML 1,000 ML IV SCH (10:45)
--- NOTE | 2021-08-09 10:49 | ERPHSYRPT ---
- History of Present Illness Time Seen by Provider: 08/09/21 10:44 Historian: patient, family Exam Limitations: no limitations Patient Subjective Stated Complaint: PT TO ER WITH COMPLAINTS OF CHEST PAIN THAT STARTED 3 DAYS AGO. PT STATES PAIN COMES AND GOES, STARTES IN LEFT BREAST AND RADIATES TO LEFT ARM, SHOULDER AND BACK. DENIES SOB. PT TOOK 1 NITRO AT HOME WITH SOME RELIEF. Triage Nursing Assessment: PT AMBULATORY. SKIN PWD. A&OX4. Physician History: 71 [address] old pt of Dr. Avina at , now with Cp intermittent for 3 days left substernal and radiating to left arm and back. Improved after one NTG at home. No abd pain, mild SOBreath. No prior hx for Ht dx negative cath years ago. + family Hx and sees cardio for HPTN. CHest clear. Ht reg withpout murmur. Abd nontender without peritineal signs. Ext without edema. calves nontender and negative homans bilaterally. Timing/Duration: day(s) Activities at Onset: none Quality: fullness, pressure, sharpness Location: substernal, shoulder, back Chest Pain Radiation: arm, back Severity of Pain-Max: moderate Severity of Pain-Current: moderate Modifying Factors: Improves With: nitroglycerin Associated Symptoms: back pain Prior Chest Pain/Cardiac Workup: cardiac cath Nitro Today/Relief: 0.4 mg x 1, provided at home, mild relief Aspirin Treatment Today: 81 mg x 4, provided by ED Allergies/Adverse Reactions: adhesive tape Allergy (Intermediate, Verified 08/09/21 10:43) Rash Penicillins Allergy (Intermediate, Verified 08/09/21 10:43) Itching Sulfa (Sulfonamide Antibiotics) Allergy (Intermediate, Verified 08/09/21 10:43) Itching tramadol HCl [From Ultram] Allergy (Intermediate, Verified 08/09/21 10:43) Itching codeine Adverse Reaction (Severe, Verified 08/09/21 10:43) mood swings Home Medications: ALPRAZolam 0.25 MG [xanAX 0.25 MG] 0.5 tab PO TID PRN 09/16/12 [History] Docusate Sodium [Stool Softener] 100 mg PO DAILY PRN PRN 12/13/14 [History] Fluticasone Propionate [Flonase Allergy Relief] 15.8 ml NS DAILY 12/29/18 [History] PANTOPRAZOLE 40 mg Tablet [Protonix 40MG Tablet] 40 mg PO QAM 07/29/20 [History] Bioflav,Lemon/Vit Bcomp,C [Lipo-Flavonoid Plus Caplet] 1 tab PO DAILY 08/09/21 [History] L. Rhamnosus GG/Inulin [Culturelle Digest 10B Cell Cap] 1 cap PO DAILY 08/09/21 [History] Losartan/Hydrochlorothiazide [Losartan-Hctz 50-12.5 mg Tab] 1 tab PO DAILY 08/09/21 [History] Metoprolol Succinate 50 mg [Toprol Xl 50 MG] 1 tab PO DAILY 08/09/21 [History] Nitroglycerin 0.4 mg SL PRN 08/09/21 [History] Hx Tetanus, Diphtheria Vaccination/Date Given: Yes (up to date) Hx Influenza Vaccination/Date Given: No Hx Pneumococcal Vaccination/Date Given: No Travel Risk - International Travel Have you traveled outside of the country in past 3 weeks: No - Coronavirus Screening Are you exhibiting any of the following symptoms?: No Close contact with a COVID-19 positive Pt in past 14-21 Days: Yes - Vaccine Status Have you recieved a Covid-19 vaccination: No - Review of Systems Constitutional: No Fever, No Chills Eyes: No Symptoms Ears, Nose, & Throat: No Symptoms Respiratory: No Cough, No Dyspnea Cardiac: Chest Pain, No Edema, No Syncope Abdominal/Gastrointestinal: No Abdominal Pain, No Nausea, No Vomiting, No Diarrhea Genitourinary Symptoms: No Dysuria Musculoskeletal: Back Pain, No Neck Pain Skin: No Rash Neurological: No Dizziness, No Focal Weakness, No Sensory Changes Psychological: No Symptoms Endocrine: No Symptoms Hematologic/Lymphatic: No Symptoms Immunological/Allergic: No Symptoms All Other Systems: Reviewed and Negative - Past Medical History Pertinent Past Medical History: Yes Neurological History: Migraines ENT History: Macular Degeneration Cardiac History: High Cholesterol, Hypertension, Other Respiratory History: Asthma Endocrine Medical History: No Pertinent History Musculoskeletal History: Arthritis, Fractures GI Medical History: GERD History: No Pertinent History Psycho-Social History: Anxiety Female Reproductive Disorders: Abnormal Uterine Bleeding Other Medical History: leaking heart valves (2), benign spots on both sides of lungs. left foot fracture 2014 - Past Surgical History Past Surgical History: Yes Neuro Surgical History: No Pertinent History Cardiac: Cardiac Catheterization Respiratory: Other Gastrointestinal: Cholecystectomy Genitourinary: No Pertinent History Musculoskeletal: Joint Replacement Female Surgical History: Hysterectomy, Tubal Ligation Other Surgical History: left knee replaced, meniscus surgery R knee. lung biopsy right and left, 12 years ago, mediastinoscopy for bx. (-). varicose vein stripping - Social History Smoking Status: Never smoker Exposure to second hand smoke: No (in past) Drug Use: none Patient Lives Alone: No - Nursing Vital Signs Nursing Vital Signs: Initial Vital Signs Temperature 97.5 F 08/09/21 10:33 Pulse Rate 82 08/09/21 10:33 Respiratory Rate 16 08/09/21 10:33 Blood Pressure 177/84 08/09/21 10:33 O2 Sat by Pulse Oximetry 97 08/09/21 10:33 Pain Scale Pain Intensity 3 - Physical Exam General Appearance: no apparent distress, alert Eye Exam: PERRL/EOMI, eyes nml inspection Ears, Nose, Throat Exam: normal ENT inspection, moist mucous membranes Neck Exam: normal inspection, non-tender, supple, full range of motion Respiratory Exam: normal breath sounds, lungs clear, No respiratory distress Cardiovascular Exam: regular rate/rhythm, normal heart sounds, normal peripheral pulses Gastrointestinal/Abdomen Exam: soft, No tenderness, No mass Pelvic Exam: deferred Rectal Exam: deferred Back Exam: normal inspection, No CVA tenderness, No vertebral tenderness Extremity Exam: normal inspection, normal range of motion Neurologic Exam: alert, oriented x 3, cooperative, normal mood/affect, sensation nml, No motor deficits Skin Exam: normal color, warm, dry SpO2 Interpretation: normal SpO2: 97 O2 Delivery: Room Air - Course Nursing assessment & vital signs reviewed: Yes EKG Interpreted by Me: Sinus Rhythm, Left Bundle Branch Block, Non-specific ST Changes - Radiology Exams Chest X-ray Interpretation: Reviewed by me, Other (reticular interstitial pattern) - CT Exams Chest CT Interpretation: Tele-radiologist Report, No PE Ordered Tests: Active Orders 24 hr Category Date Time Status Psychology Fellow STAT Care 08/09/21 10:42 Active EKG-ER Only STAT Care 08/09/21 10:40 Active IV Insertion STAT Care 08/09/21 10:40 Active Pulse Oximetry (ED) STAT Care 08/09/21 10:40 Active CHEST 1 VIEW (PORTABLE) Stat Exams 08/09/21 10:41 Taken CHEST WITH CONTRAST [CT] Stat Exams 08/09/21 11:21 Taken AMYLASE Stat Lab 08/09/21 10:45 Completed CBC W DIFF Stat Lab 08/09/21 10:45 Completed CMP Stat Lab 08/09/21 10:45 Completed CULTURE,URINE Stat Lab 08/09/21 11:34 Received D-DIMER QUANTITATIVE Stat Lab 08/09/21 10:45 Completed LIPASE Stat Lab 08/09/21 10:45 Completed Lactic Acid Stat Lab 08/09/21 10:40 Completed NT PRO BNP Stat Lab 08/09/21 10:45 Completed TROPONIN Q3H Lab 08/09/21 10:45 Completed TROPONIN Q3H Lab 08/09/21 13:50 Completed TROPONIN Q3H Lab 08/09/21 16:45 Ordered TROPONIN Q3H Lab 08/09/21 19:45 Ordered TROPONIN Q3H Lab 08/09/21 22:45 Ordered UA W/RFX CULTURE Stat Lab 08/09/21 11:34 Completed Medication Summary Generic Name Dose Route Start Last Admin Trade Name Freq PRN Reason Stop Dose Admin Sodium Chloride 1,000 mls @ 50 mls/hr 08/09/21 10:45 08/09/21 11:03 Sodium Chloride 0.9% 1000 Ml IV 09/08/21 10:44 50 mls/hr .Q20H DANIEL Administration Discontinued Medications Generic Name Dose Route Start Last Admin Trade Name Freq PRN Reason Stop Dose Admin Aspirin 324 mg 08/09/21 10:40 08/09/21 11:04 Aspirin 81 Mg Tab.Chew PO 08/09/21 10:41 324 mg STAT ONE Administration Aspirin Confirm 08/09/21 11:03 Aspirin 81 Mg Tab.Chew Administered 08/09/21 11:04 Dose 324 mg .ROUTE .STK-MED ONE Famotidine 20 mg 08/09/21 10:40 08/09/21 11:04 Famotidine 20 Mg/1 Vial IV 08/09/21 10:41 20 mg STAT ONE Administration Famotidine Confirm 08/09/21 11:03 Famotidine 20 Mg/1 Vial Administered 08/09/21 11:04 Dose 20 mg IV .STK-MED ONE Nitroglycerin 0.4 mg 08/09/21 10:40 08/09/21 11:04 Nitroglycerin 0.4 Mg (Ed) 0.4 Mg Tab.Subl SL 08/09/21 10:41 0.4 mg STAT ONE Administration Nitroglycerin Confirm 08/09/21 11:03 Nitroglycerin 0.4 Mg (Ed) 0.4 Mg Tab.Subl Administered 08/09/21 11:04 Dose 0.4 mg SL .STK-MED ONE Lab/Rad Data: Laboratory Result Diagrams 08/09/21 10:45 08/09/21 10:45 Laboratory Results 08/09/21 08/09/21 08/09/21 Range/Units 13:50 11:34 10:45 WBC (4.0-10.5) x10^3/uL RBC (4.1-5.4) x10^6/uL Hgb (12.0-16.0) g/dL Hct (35-47) % MCV (78-100) fL MCH (26-32) pg MCHC (32-36) g/dL RDW (11.5-14.0) % Plt Count (150-450) x10^3/uL MPV (7.5-11.0) fL Gran % (36.0-66.0) % Immature Gran % (Auto) (0.00-0.4) % Nucleat RBC Rel Count (0.00-0.1) % Eos # (Auto) (0-0.5) x10^3/uL Immature Gran # (Auto) (0.00-0.03) x10^3u/L Absolute Lymphs (auto) (1.0-4.6) x10^3/uL Absolute Monos (auto) (0.0-1.3) x10^3/uL Absolute Nucleated RBC (0.00-0.01) x10^3u/L Lymphocytes % (24.0-44.0) % Monocytes % (0.0-12.0) % Eosinophils % (0.00-5.0) % Basophils % (0.0-0.4) % Absolute Granulocytes (1.4-6.9) x10^3/uL Basophils # (0-0.4) x10^3/uL D-Dimer (0.0-0.50) mg/L Sodium (137-145) mmol/L Potassium (3.5-5.1) mmol/L Chloride (98-107) mmol/L Carbon Dioxide (22-30) mmol/L Anion Gap (5-15) MEQ/L BUN (7-17) mg/dL Creatinine (0.52-1.04) mg/dL Estimated GFR ML/MIN Glucose (74-106) mg/dL Lactic Acid (0.4-2.0) Calcium (8.4-10.2) mg/dL Total Bilirubin (0.2-1.3) mg/dL AST (14-36) U/L ALT (0-35) U/L Alkaline Phosphatase (38-126) U/L Troponin I < 0.012 < 0.012 (0.000-0.034) ng/mL NT-Pro-B Natriuret Pep (0-900) pg/mL Serum Total Protein (6.3-8.2) g/dL Albumin (3.5-5.0) g/dL Amylase (30-110) U/L Lipase (23-300) U/L Urinalys Dipstick Clnc MAIN LAB Urine Color YELLOW (YELLOW) Urine Appearance CLEAR (CLEAR) Urine pH 5.0 (5-6) Ur Specific [place] 1.025 (1.005-1.025) POC Urine Protein Conf NEGATIVE (Negative) Urine Ketones NEGATIVE (NEGATIVE) Urine Nitrite NEGATIVE (NEGATIVE) Urine Bilirubin NEGATIVE (NEGATIVE) Urine Urobilinogen 0.2 (0-1) mg/dL Urine Leukocytes SMALL (NEGATIVE) Urine WBC (Auto) 6-10 (0-5) /HPF Urine RBC (Auto) 0-2 (0-2) /HPF U Epithel Cells (Auto) RARE (FEW) /HPF Urine Bacteria (Auto) RARE (NEGATIVE) /HPF Urine RBC SMALL (0-5) Vikram/ul Urine Mucus (Auto) SLIGHT (NEGATIVE) /HPF Ur Culture Indicated? YES Urine Glucose NEGATIVE (NEGATIVE) mg/dL 08/09/21 08/09/21 08/09/21 Range/Units 10:45 10:45 10:45 WBC 9.1 (4.0-10.5) x10^3/uL RBC 4.74 (4.1-5.4) x10^6/uL Hgb 14.0 (12.0-16.0) g/dL Hct 42.5 (35-47) % MCV 89.7 (78-100) fL MCH 29.5 (26-32) pg MCHC 32.9 (32-36) g/dL RDW 12.7 (11.5-14.0) % Plt Count 283 (150-450) x10^3/uL MPV 9.7 (7.5-11.0) fL Gran % 72.8 H (36.0-66.0) % Immature Gran % (Auto) 0.3 (0.00-0.4) % Nucleat RBC Rel Count 0.0 (0.00-0.1) % Eos # (Auto) 0.13 (0-0.5) x10^3/uL Immature Gran # (Auto) 0.03 (0.00-0.03) x10^3u/L Absolute Lymphs (auto) 1.66 (1.0-4.6) x10^3/uL Absolute Monos (auto) 0.59 (0.0-1.3) x10^3/uL Absolute Nucleated RBC 0.00 (0.00-0.01) x10^3u/L Lymphocytes % 18.3 L (24.0-44.0) % Monocytes % 6.5 (0.0-12.0) % Eosinophils % 1.4 (0.00-5.0) % Basophils % 0.7 (0.0-0.4) % Absolute Granulocytes 6.58 (1.4-6.9) x10^3/uL Basophils # 0.06 (0-0.4) x10^3/uL D-Dimer 0.63 H* (0.0-0.50) mg/L Sodium 141 (137-145) mmol/L Potassium 4.0 (3.5-5.1) mmol/L Chloride 104 (98-107) mmol/L Carbon Dioxide 28 (22-30) mmol/L Anion Gap 13.2 (5-15) MEQ/L BUN 23 H (7-17) mg/dL Creatinine 0.91 (0.52-1.04) mg/dL Estimated GFR > 60.0 ML/MIN Glucose 109 H (74-106) mg/dL Lactic Acid (0.4-2.0) Calcium 9.1 (8.4-10.2) mg/dL Total Bilirubin 0.60 (0.2-1.3) mg/dL AST 21 (14-36) U/L ALT 18 (0-35) U/L Alkaline Phosphatase 99 (38-126) U/L Troponin I (0.000-0.034) ng/mL NT-Pro-B Natriuret Pep 201 (0-900) pg/mL Serum Total Protein 7.4 (6.3-8.2) g/dL Albumin 4.1 (3.5-5.0) g/dL Amylase 77 (30-110) U/L Lipase 96 (23-300) U/L Urinalys Dipstick Clnc Urine Color (YELLOW) Urine Appearance (CLEAR) Urine pH (5-6) Ur Specific [place] (1.005-1.025) POC Urine Protein Conf (Negative) Urine Ketones (NEGATIVE) Urine Nitrite (NEGATIVE) Urine Bilirubin (NEGATIVE) Urine Urobilinogen (0-1) mg/dL Urine Leukocytes (NEGATIVE) Urine WBC (Auto) (0-5) /HPF Urine RBC (Auto) (0-2) /HPF U Epithel Cells (Auto) (FEW) /HPF Urine Bacteria (Auto) (NEGATIVE) /HPF Urine RBC (0-5) Vikram/ul Urine Mucus (Auto) (NEGATIVE) /HPF Ur Culture Indicated? Urine Glucose (NEGATIVE) mg/dL 08/09/21 Range/Units 10:40 WBC (4.0-10.5) x10^3/uL RBC (4.1-5.4) x10^6/uL Hgb (12.0-16.0) g/dL Hct (35-47) % MCV (78-100) fL MCH (26-32) pg MCHC (32-36) g/dL RDW (11.5-14.0) % Plt Count (150-450) x10^3/uL MPV (7.5-11.0) fL Gran % (36.0-66.0) % Immature Gran % (Auto) (0.00-0.4) % Nucleat RBC Rel Count (0.00-0.1) % Eos # (Auto) (0-0.5) x10^3/uL Immature Gran # (Auto) (0.00-0.03) x10^3u/L Absolute Lymphs (auto) (1.0-4.6) x10^3/uL Absolute Monos (auto) (0.0-1.3) x10^3/uL Absolute Nucleated RBC (0.00-0.01) x10^3u/L Lymphocytes % (24.0-44.0) % Monocytes % (0.0-12.0) % Eosinophils % (0.00-5.0) % Basophils % (0.0-0.4) % Absolute Granulocytes (1.4-6.9) x10^3/uL Basophils # (0-0.4) x10^3/uL D-Dimer (0.0-0.50) mg/L Sodium (137-145) mmol/L Potassium (3.5-5.1) mmol/L Chloride (98-107) mmol/L Carbon Dioxide (22-30) mmol/L Anion Gap (5-15) MEQ/L BUN (7-17) mg/dL Creatinine (0.52-1.04) mg/dL Estimated GFR ML/MIN Glucose (74-106) mg/dL Lactic Acid 1.6 (0.4-2.0) Calcium (8.4-10.2) mg/dL Total Bilirubin (0.2-1.3) mg/dL AST (14-36) U/L ALT (0-35) U/L Alkaline Phosphatase (38-126) U/L Troponin I (0.000-0.034) ng/mL NT-Pro-B Natriuret Pep (0-900) pg/mL Serum Total Protein (6.3-8.2) g/dL Albumin (3.5-5.0) g/dL Amylase (30-110) U/L Lipase (23-300) U/L Urinalys Dipstick Clnc Urine Color (YELLOW) Urine Appearance (CLEAR) Urine pH (5-6) Ur Specific [place] (1.005-1.025) POC Urine Protein Conf (Negative) Urine Ketones (NEGATIVE) Urine Nitrite (NEGATIVE) Urine Bilirubin (NEGATIVE) Urine Urobilinogen (0-1) mg/dL Urine Leukocytes (NEGATIVE) Urine WBC (Auto) (0-5) /HPF Urine RBC (Auto) (0-2) /HPF U Epithel Cells (Auto) (FEW) /HPF Urine Bacteria (Auto) (NEGATIVE) /HPF Urine RBC (0-5) Vikram/ul Urine Mucus (Auto) (NEGATIVE) /HPF Ur Culture Indicated? Urine Glucose (NEGATIVE) mg/dL - Progress Progress: improved, re-examined Air Movement: good Progress Note: 08/09/21 15:[address] Ulloa, pt and family and will place in hosp on observation and rule out ACS and all agree with this plan. Blood Culture(s) Obtained: No Antibiotics given: No Counseled pt/family regarding: lab results, diagnosis, need for follow-up, rad results - Departure Departure Disposition: Observation Clinical Impression: Chest pain Condition: Good Critical Care Time: No Referrals: BEENA ULLOA MD [Primary Care Provider] - Follow up/PCP as directed
[2021-08-09 10:54] LABS: Absolute Neutrophil Ct (ANC) 6.58 x10^3/uL (1.4-6.9); Basophil (Absolute #) 0.06 x10^3/uL (0-0.4); Eosinophil % 1.4 % (0.00-5.0); Eosinophil (Absolute #) 0.13 x10^3/uL (0-0.5); Hematocrit 42.5 % (35-47); Lymphocyte (Absolute #) 1.66 x10^3/uL (1.0-4.6); Lymphocytes % 18.3 % (24.0-44.0); Mean Cell Volume 89.7 fL (78-100); Mean Corpuscular Hemoglobin 29.5 pg (26-32); Mean Corpuscular Hgb Concent. 32.9 g/dL (32-36); Mean Platelet Volume 9.7 fL (7.5-11.0); Monocyte (Absolute #) 0.59 x10^3/uL (0.0-1.3); Monocytes % 6.5 % (0.0-12.0); Neutrophil % 72.8 % (36.0-66.0); Platelet Count 283 x10^3/uL (150-450); Red Blood Count 4.74 x10^6/uL (4.1-5.4); Red Cell Distribution Width 12.7 % (11.5-14.0); White Blood Count 9.1 x10^3/uL (4.0-10.5)
[2021-08-09] MEDS ORDERED: BABY ASPIRIN 81 MG CHEW ONE (11:03)
[2021-08-09] MEDS ORDERED: Sodium Chloride 0.9% 1000 ML 1,000 ML ONE (11:03)
[2021-08-09 11:15] LABS: ALBUMIN 4.1 g/dL (3.5-5.0); ALKALINE PHOSPHATASE 99 U/L (38-126); AMYLASE 77 U/L (30-110); ANION GAP 13.2 MEQ/L (5-15); BLOOD UREA NITROGEN 23 mg/dL (7-17); CHLORIDE 104 mmol/L (98-107); Calcium 9.1 mg/dL (8.4-10.2); Carbon Dioxide 28 mmol/L (22-30); Creatinine 1 0.91 mg/dL (0.52-1.04); EST GLOMERULAR FILTRATION RATE > 60.0 ML/MIN; Glucose 109 mg/dL (74-106); LIPASE 96 U/L (23-300); NT PRO BNP 201 pg/mL (0-900); SGOT/AST 21 U/L (14-36); SGPT/ALT 18 U/L (0-35); SODIUM 141 mmol/L (137-145); Total Protein 7.4 g/dL (6.3-8.2)
[2021-08-09 11:41] LABS: Appearance CLEAR (CLEAR); Bilirubin NEGATIVE (NEGATIVE); Dipstick done @ ? MAIN LAB; Glucose NEGATIVE (NEGATIVE); Ketones NEGATIVE (NEGATIVE); Nitrite NEGATIVE (NEGATIVE); Protein,Urine Dip NEGATIVE (Negative); RBC SMALL Ery/ul (0-5); Specific Gravity 1.025 (1.005-1.025); Urobilinogen 0.2 mg/dL (0-1)
[2021-08-09 11:43] LABS: Bacteria RARE /HPF (NEGATIVE); Epithelial Cells RARE /HPF (FEW); Mucus SLIGHT /HPF (NEGATIVE); RBC 0-2 /HPF (0-2)
[2021-08-09 11:44] LABS: Urine Cultured Indicated? YES
[2021-08-09 16:06] LABS: INFLUENZA A NEGATIVE (NEGATIVE); INFLUENZA B NEGATIVE (NEGATIVE); RESPIRATORY SYNCTIAL VIRUS NEGATIVE (Negative); SARS-CoV-2 Xpert Express NEGATIVE (NEGATIVE)
[2021-08-09] MEDS ORDERED: Senokot-S Tablet PO PRN (16:50)
[2021-08-09] MEDS ORDERED: TYLENOL 325 MG PO PRN (16:50)
[2021-08-09] MEDS ORDERED: HUMULIN R SQ PRN (16:50)
[2021-08-09] MEDS ORDERED: MAALOX ES 30 ML UNIT DOSE PO PRN (16:50)
[2021-08-09] MEDS ORDERED: Sodium Chloride 0.9% 500 ML 500 ML IV SCH (16:50)
[2021-08-09] MEDS ORDERED: Zofran 4 MG/2 ML VIAL IV PRN (16:50)
[2021-08-09] MEDS ORDERED: MILK OF MAGNESIA 30 ML PO PRN (16:50)
[2021-08-09] MEDS: ROCEPHIN 1 Gm-D5w 50 ml Bag** 1 G/50 ML IVPB IV SCH (18:08)
--- NOTE | 2021-08-09 19:09 | XRAY ---
Indication: Chest pain radiating left arm and back. Elevated d-dimer. Multiple contiguous axial images obtained through the chest using 80 cc of Isovue-370 contrast and PE protocol. Comparison: November 25, 2014. Good opacification of the pulmonary arteries to include the lobar and segmental branches. No pulmonary mass. Heart not enlarged. Aorta is normal course and caliber. No pathologic mediastinal/hilar lymphadenopathy. New small hiatal hernia. Lungs inflated and clear. Bony thorax intact with minimal degenerative changes of the spine. Limited upper abdomen again demonstrates fatty liver, cholecystectomy clips, and hepatic/splenic calcified granulomas. Impression: 1. Continued negative pulmonary embolus. 2. Chronic findings including small hiatal hernia, fatty liver, and old granulomatous disease. Comment: Preliminary interpretation made by [facility]. No critical discrepancy.
--- NOTE | 2021-08-09 19:09 | XRAY ---
Indication: Chest pain. Comparison: July 29, 2020. Portable chest again demonstrates normal heart and lungs with chronic right hemidiaphragm elevation. Bony thorax intact with mild osteopenia. No new/acute findings.
[2021-08-09] MEDS: NITRO-BID 2% UD PACKETS TOP SCH (21:44)
[2021-08-09] MEDS: Pepcid 20 MG VIAL IV SCH (21:46)
[2021-08-10] MEDS: NITRO-BID 2% UD PACKETS TOP SCH (06:02)
[2021-08-10 06:33] LABS: Risk Ratio 6.7
[2021-08-10] MEDS ORDERED: xanAX 0.25 MG PO PRN (07:10)
[2021-08-10] MEDS ORDERED: Nitrostat 0.4 MG Tablet SL PRN (07:10)
[2021-08-10] MEDS ORDERED: hydroDIURIL 25 MG PO SCH (10:00)
[2021-08-10] MEDS ORDERED: RHAMNOSUS GG PO SCH (10:00)
[2021-08-10] MEDS ORDERED: Lopressor 50 MG PO SCH (10:00)
[2021-08-10] MEDS ORDERED: ENOXAPARIN SODIUM SQ SCH (10:00)
[2021-08-10] MEDS ORDERED: [UNRECOGNIZED DRUG - OTHER] PO SCH (10:00)
[2021-08-10] MEDS ORDERED: Acidophilus TABLET PO SCH (10:00)
[2021-08-10] MEDS ORDERED: Cozaar 50 MG PO SCH (10:00)
[2021-08-10] MEDS ORDERED: INULIN PO SCH (10:00)
[2021-08-10] MEDS ORDERED: Ecotrin 325 MG PO SCH (10:00)
[2021-08-10] MEDS: ROCEPHIN 1 Gm-D5w 50 ml Bag** 1 G/50 ML IVPB IV SCH (10:18)
[2021-08-10] MEDS: Pepcid 20 MG VIAL IV SCH (10:25)
[2021-08-10 12:02] VITALS: BP 134/71; PULSE 80; O2SAT 96
--- NOTE | 2021-08-10 12:44 | PCM.SSS ---
History of Present Illness - Chief Complaint Chief Complaint: chest pain History of Present Illness: is a 71 year old female pt of Dr. Hoskins with hyperlipidemia, HTN, asthma, and anxiety who was admitted through ER with CP to r/o [place]. She started having chest pain 3-4d ago; L sided, radiating to the L back. She was having 10/10 pain yesterday at home and called the ER nurse, who advised her to take a nitro (which alleviated the pain somewhat) and some in to ER. Her pain had started radiating to the L arm as well. +SOB, no diaphoresis. + N. no palpitations. Feeling anxious. D-dimer was elevated but CTA chest neg for PE. Troponins neg x 5. She complained of mass posterior to R knee yesterday that is resolved today; has chronic intermittent leg pain but none currently. This morning she denies chest pain. Is tolerating po. Has +FHx CAD in her mother, father, and sister. Has never been a smoker. Does not drink alcohol. She sees Dr. Avina and will follow up with him; unsure the date of her last stress test. Will f/u with Dr. Hoskins in 1 week. - Review of Systems Respiratory: Short Of Breath Cardiac: Chest Pain Abdominal/Gastrointestinal: Nausea, Other (increased number of stools) Psychological: Anxiety, No Depression Endocrine: Polyuria (improving recently) All Other Systems: Reviewed and Negative Medications & Allergies Home Medications: Home Medication List ALPRAZolam 0.25 MG [xanAX 0.25 MG] 0.5 tab PO TID PRN 09/16/12 [History Confirmed 08/09/21] Bioflav,Lemon/Vit Bcomp,C [Lipo-Flavonoid Plus Caplet] 1 tab PO HS 08/09/21 [History Confirmed 08/09/21] L. Rhamnosus GG/Inulin [Culturelle Digest 10B Cell Cap] 1 cap PO DAILY 08/09/21 [History Confirmed 08/09/21] Losartan/Hydrochlorothiazide [Losartan-Hctz 50-12.5 mg Tab] 1 tab PO DAILY 0 08/09/21 [History Confirmed 08/09/21] Metoprolol Succinate 50 mg [Toprol Xl 50 MG] 1 tab PO HS 08/09/21 [History Confirmed 08/09/21] Nitroglycerin 0.4 mg SL Q5MIN PRN MR X 3 PRN 08/09/21 [History Confirmed 08/09/21] Aspirin EC 325 mg [Ecotrin 325 MG] 325 mg PO DAILY 30 Days #30 cap [Rx] Cephalexin Mh 500 mg [Keflex 500 mg] 500 mg PO Q6H #16 cap 08/10/21 [Rx] Allergies/Adverse Reactions: Allergies Allergy/AdvReac Type Severity Reaction Status Date / Time adhesive tape Allergy Intermediate Rash Verified 08/09/21 10:43 Penicillins Allergy Intermediate Itching Verified 08/09/21 10:43 Sulfa (Sulfonamide Allergy Intermediate Itching Verified 08/09/21 10:43 Antibiotics) tramadol HCl [From Ultra] Allergy Intermediate Itching Verified 08/09/21 10:43 codeine AdvReac Severe mood swings Verified 08/09/21 10:43 - Past Medical History Past Medical History: Yes Neurological History: Migraines ENT History: Macular Degeneration Cardiac History: High Cholesterol, Hypertension, Other Respiratory History: Asthma Endocrine Medical History: No Pertinent History Musculoskelatal History: Arthritis, Fractures GI Medical History: GERD History: No Pertinent History Pyscho-Social History: Anxiety Reproductive Disorders: Abnormal Uterine Bleeding Comment: leaking heart valves (2), benign spots on both sides of lungs. left foot fracture 2014 - Female History Hx Last Menstrual Period: N/A Are you now?: No - Past Surgical History Past Surgical History: Yes Neuro Surgical History: No Pertinent History Cardiac History: Cardiac Catheterization Respiratory Surgery: Other GI Surgical History: Cholecystectomy Genitourinary Surgical Hx: No Pertinent History Musculskeletal Surgical Hx: Joint Replacement Female Surgical History: Hysterectomy, Tubal Ligation Other Surgical History: left knee replaced, meniscus surgery R knee. lung biopsy right and left, 12 years ago, mediastinoscopy for bx. (-). varicose vein stripping - Social History Smoking Status: Never smoker Exposure to second hand smoke: No Alcohol: None Drug Use: none - Physical Exam Vital Signs: Vital Signs - 24 hr Temp Pulse Resp BP Pulse Ox 08/10/21 12:00 97.1 F 80 20 134/71 96 08/10/21 07:35 97.5 F 75 18 134/77 95 08/10/21 04:00 98.0 F 75 16 118/58 96 08/09/21 23:40 98.6 F 81 18 131/63 94 L 08/09/21 19:25 98.4 F 78 18 116/55 95 08/09/21 18:15 98.6 F 73 25 H 152/72 95 08/09/21 17:32 98.6 F 73 25 H 152/72 95 08/09/21 16:05 79 20 152/77 98 08/09/21 15:09 97 08/09/21 15:05 77 18 146/80 97 08/09/21 13:24 72 16 137/72 96 08/09/21 12:42 71 18 137/72 95 General Appearance: no apparent distress, alert Neurologic Exam: oriented x 3, cooperative, normal mood/affect Eye Exam: eyes nml inspection Ears, Nose, Throat Exam: moist mucous membranes Neck Exam: normal inspection, No lymphadenopathy, No thyromegaly Respiratory Exam: normal breath sounds, lungs clear, No crackles/rales, No rhonchi, No wheezing Cardiovascular Exam: regular rate/rhythm, normal heart sounds, No murmur Gastrointestinal/Abdomen Exam: soft, normal bowel sounds, No tenderness, No distention, No mass, No guarding, No rebound Back Exam: normal inspection, No rash Extremity Exam: normal inspection, No pedal edema, No swelling Skin Exam: normal color, warm, dry, No rash Results - Labs Lab/Micro Results: Lab Results-Last 24 Hours 08/09/21 08/09/21 08/09/21 Range/Units 10:05 13:50 17:05 Hemoglobin A1c 5.17 (4.5-6.0) % Troponin I < 0.012 < 0.012 (0.000-0.034) ng/mL Triglycerides (30-150) mg/dL Cholesterol (50-200) mg/dL LDL Cholesterol (30-100) mg/dL HDL Cholesterol (40-60) mg/dL Heart Disease Risk Ratio Influenza Type A Ag (NEGATIVE) Influenza Type B Ag (NEGATIVE) RSV (PCR) (Negative) SARS-CoV-2 (PCR) (NEGATIVE) 08/09/21 08/09/21 08/09/21 Range/Units 20:15 22:46 Unknown Hemoglobin A1c (4.5-6.0) % Troponin I < 0.012 0.012 (0.000-0.034) ng/mL Triglycerides (30-150) mg/dL Cholesterol (50-200) mg/dL LDL Cholesterol (30-100) mg/dL HDL Cholesterol (40-60) mg/dL Heart Disease Risk Ratio Influenza Type A Ag NEGATIVE (NEGATIVE) Influenza Type B Ag NEGATIVE (NEGATIVE) RSV (PCR) NEGATIVE (Negative) SARS-CoV-2 (PCR) NEGATIVE (NEGATIVE) 08/10/21 Range/Units 05:28 Hemoglobin A1c (4.5-6.0) % Troponin I (0.000-0.034) ng/mL Triglycerides 154 H (30-150) mg/dL Cholesterol 254 H (50-200) mg/dL LDL Cholesterol 161 H (30-100) mg/dL HDL Cholesterol 38 L (40-60) mg/dL Heart Disease Risk Ratio 6.7 Influenza Type A Ag (NEGATIVE) Influenza Type B Ag (NEGATIVE) RSV (PCR) (Negative) SARS-CoV-2 (PCR) (NEGATIVE) Microbiology 08/09/21 11:34 Urine Culture - Preliminary Urine, Void <10K NORMAL SKIN ИРИНА PROBABLE SKIN CONTAMINANT - Radiology Impressions Radiology Exams & Impressions: Radiology Procedures Category Date Time Status CHEST 1 VIEW (PORTABLE) Stat Exams 08/09/21 10:41 Completed CHEST WITH CONTRAST [CT] Stat Exams 08/09/21 11:21 Completed - Other Procedures and Tests Respiratory Therapy 08/11/21 05:00 EKG ROUTINE 08/12/21 05:00 EKG ROUTINE Assessment/Plan (1) Chest pain Current Visit: Yes Status: Acute Qualifiers: Chest pain type: unspecified Qualified Code(s): R07.9 - Chest pain, unspecified Assessment & Plan: Ruled out for TX and PE. F/u with Dr. Avina and Dr. Hoskins outpatient. Code(s): R07.9 - CHEST PAIN, UNSPECIFIED (2) Hyperlipidemia Current Visit: No Status: Chronic Qualifiers: Hyperlipidemia type: mixed hyperlipidemia Qualified Code(s): E78.2 - Mixed hyperlipidemia Assessment & Plan: Defer statin therapy to cardiology. Code(s): E78.5 - HYPERLIPIDEMIA, UNSPECIFIED (3) UTI (urinary tract infection) Current Visit: Yes Status: Acute Qualifiers: Urinary tract infection type: acute cystitis Assessment & Plan: Had 6-10 WBC in UA on admission; received 1 dose IV rocephin and sent home on 4 more days of po keflex. UCx pending. Code(s): N39.0 - URINARY TRACT INFECTION, SITE NOT SPECIFIED Hospital Summary - Hospital Course Hospital Course: Pt admitted with CP to r/o TX - troponins neg. D-dimer elevated. CT negative for PE. Started treating for possible UTI with 6-10 WBC in UA. - Vitals & Intake/Output Vital Signs: Vital Signs Temperature 97.1 F 08/10/21 12:00 Pulse Rate 80 08/10/21 12:00 Respiratory Rate 20 08/10/21 12:00 Blood Pressure 134/71 08/10/21 12:00 O2 Sat by Pulse Oximetry 96 08/10/21 12:00 Intake & Output: Intake & Output 08/08/21 08/09/21 08/10/21 08/11/21 11:59 11:59 11:59 11:59 Intake Total 1524 Output Total 3300 Balance -1776 Weight 95.254 kg 97.3 kg - Lab Result Diagrams: 08/09/21 10:45 08/09/21 10:45 Lab Results-Last 24 Hrs: Lab Results-Last 24 Hours 08/09/21 08/09/21 08/09/21 Range/Units 10:05 13:50 17:05 Hemoglobin A1c 5.17 (4.5-6.0) % Troponin I < 0.012 < 0.012 (0.000-0.034) ng/mL Triglycerides (30-150) mg/dL Cholesterol (50-200) mg/dL LDL Cholesterol (30-100) mg/dL HDL Cholesterol (40-60) mg/dL Heart Disease Risk Ratio Influenza Type A Ag (NEGATIVE) Influenza Type B Ag (NEGATIVE) RSV (PCR) (Negative) SARS-CoV-2 (PCR) (NEGATIVE) 08/09/21 08/09/21 08/09/21 Range/Units 20:15 22:46 Unknown Hemoglobin A1c (4.5-6.0) % Troponin I < 0.012 0.012 (0.000-0.034) ng/mL Triglycerides (30-150) mg/dL Cholesterol (50-200) mg/dL LDL Cholesterol (30-100) mg/dL HDL Cholesterol (40-60) mg/dL Heart Disease Risk Ratio Influenza Type A Ag NEGATIVE (NEGATIVE) Influenza Type B Ag NEGATIVE (NEGATIVE) RSV (PCR) NEGATIVE (Negative) SARS-CoV-2 (PCR) NEGATIVE (NEGATIVE) 08/10/21 Range/Units 05:28 Hemoglobin A1c (4.5-6.0) % Troponin I (0.000-0.034) ng/mL Triglycerides 154 H (30-150) mg/dL Cholesterol 254 H (50-200) mg/dL LDL Cholesterol 161 H (30-100) mg/dL HDL Cholesterol 38 L (40-60) mg/dL Heart Disease Risk Ratio 6.7 Influenza Type A Ag (NEGATIVE) Influenza Type B Ag (NEGATIVE) RSV (PCR) (Negative) SARS-CoV-2 (PCR) (NEGATIVE) Micro Results-Entire Visit: Microbiology 08/09/21 11:34 Urine Culture - Preliminary Urine, Void <10K NORMAL SKIN ИРИНА PROBABLE SKIN CONTAMINANT - Radiology Exams Ordered Rad Exams-Entire Visit: Radiology Procedures Category Date Time Status CHEST 1 VIEW (PORTABLE) Stat Exams 08/09/21 10:41 Completed CHEST WITH CONTRAST [CT] Stat Exams 08/09/21 11:21 Completed - Procedures and Test Procedures and Tests throughout Hospitalization: Therapy Orders & Screens 08/09/21 18:37 EKG ROUTINE Comment: Diagnosis: chest pain 08/10/21 05:00 EKG ROUTINE Comment: Diagnosis: chest pain 08/11/21 05:00 EKG ROUTINE Comment: Diagnosis: chest pain 08/12/21 05:00 EKG ROUTINE Comment: Diagnosis: chest pain - Discharge Disposition: Home, Self-Care Condition: Good Prescriptions: New Aspirin EC 325 mg [Ecotrin 325 MG] 325 mg PO DAILY 30 Days #30 cap Cephalexin Mh 500 mg [Keflex 500 mg] 500 mg PO Q6H #16 cap Continue ALPRAZolam 0.25 MG [xanAX 0.25 MG] 0.5 tab PO TID PRN PRN Reason: Anxiety Metoprolol Succinate 50 mg [Toprol Xl 50 MG] 1 tab PO HS Losartan/Hydrochlorothiazide [Losartan-Hctz 50-12.5 mg Tab] 1 tab PO DAILY Bioflav,Lemon/Vit Bcomp,C [Lipo-Flavonoid Plus Caplet] 1 tab PO HS L. Rhamnosus GG/Inulin [Culturelle Digest 10B Cell Cap] 1 cap PO DAILY Nitroglycerin 0.4 mg SL Q5MIN PRN MR X 3 PRN PRN Reason: Chest Pain Instructions: Chest Pain (DC) Additional Instructions: Call to schedule follow up appointment with Dr. Hoskins on TuesdayAugust 11. Take Aspirin 325 daily until your follow up appointment
[2021-08-10] MEDS ORDERED: [UNRECOGNIZED DRUG - OTHER] PO SCH (22:00)
[2021-08-10] MEDS ORDERED: Toprol Xl 50 MG PO SCH (22:00)
[2021-08-10] MEDS ORDERED: FOLTX (FOLBIC) PO SCH (22:00)
== END 2021-08-10 13:20 | disposition home or self-care (01) ==
LOC: ED 10:32 → MED SURG 16:50
PROVIDERS: ADMIT Family Medicine; ATTEND Family Medicine
DX: R07.9 Chest pain, unspecified (principal); E78.5 Hyperlipidemia, unspecified; N39.0 Urinary tract infection, site not specified; I10 Essential (primary) hypertension; J45.909 Unspecified asthma, uncomplicated; F41.9 Anxiety disorder, unspecified; Z79.899 Other long term (current) drug therapy; Z20.828 Contact with and (suspected) exposure to other viral communicable diseases
CPT/HCPCS: 0241U; 36000; 36415; 71045; 71260; 80053; 80061; 81015; 82150; 83036; 83605; 83690; 83721; 83880; 84484; 85025; 85379; 87086; 93005; 93041; 93268; 94760; 96374; 99285; G0378; J0696; J1650; J2405; A9270-GY